=== PATIENT | female | born 1970 | race American Indian/Alaskan Native ===

== ENCOUNTER 2016-12-08 21:55 | Emergency (ER) | payer OTHER ==
[2016-12-08 23:06] LABS: Basophils % (Auto) 0.8 % (0.0-1.8); Eosinophils % (Auto) 1.3 % (0.0-4.3); Hematocrit 39.1 % (30.3-42.9); Hemoglobin 13.1 gm/dl (10.1-14.3); Mean Corpuscular HGB Conc 34 % (30-34); Mean Corpuscular Hemoglobin 30 pg (28-32); Mean Corpuscular Volume 90 fl (79-97); Platelet Count 387 K/mm3 (140-440); Red Blood Count 4.33 M/mm3 (3.65-5.03); Red Cell Distribution Width 12.3 % (13.2-15.2); White Blood Count 9.1 K/mm3 (4.5-11.0)
[2016-12-09 01:18] LABS: Anion Gap 20 mmol/L; BUN/Creatinine Ratio 18.57; Blood Urea Nitrogen 13 mg/dL (7-17); Calcium 9.3 mg/dL (8.4-10.2); Carbon Dioxide 22 mmol/L (22-30); Chloride 95.7 mmol/L (98-107); Glucose 116 mg/dL (65-100); Potassium 3.7 mmol/L (3.6-5.0); Sodium 134 mmol/L (137-145)
--- NOTE | 2016-12-09 06:30 | Emergency Department Report ---
HPI - General Chief Complaint: Chest Pain Time Seen by Provider: 12/09/16 06:09 - HPI HPI: This is a 46-year-old Afro[place] female presents to the emergency department from home with complaint of pain that started in the lower mid sternum and has gone down into the upper abdomen and radiates around the rib cage hurts her back. It began yesterday and has currently resolved without any intervention. She did have 2 episodes of vomiting along with her nausea and the says that there is been increased burping. She has a history of GERD but otherwise denies any other past medical history and she does not take any medications. Her primary care doctor is Dr. Hernandez. No recent travel or sick contacts at home. She specifically denies any history of NV, CVA, PE/DVT. She denies any shortness of breath, fever, dysuria, diaphoresis or any problems with bowel or bladder. She did not take anything for symptoms prior to presentation. ED Past Medical Hx - Past Medical History Previous Medical History?: No - Surgical History Past Surgical History?: No - Social History Smoking Status: Never Smoker Substance Use Type: None - Medications Home Medications: Home Medications Medication Instructions Recorded Confirmed Last Taken Type Docusate Sodium [Colace] 100 mg PO BID PRN #20 capsule 12/09/16 Unknown Rx Magnesium Citrate [Citrate of 300 ml PO NOW #1 bottle 12/09/16 Unknown Rx Magnesia] Nortriptyline [Pamelor] 50 mg PO QDAY 12/09/16 12/09/16 12/08/16 History Omeprazole 40 mg PO DAILY 12/09/16 12/09/16 12/08/16 History Sucralfate 1 gm PO BID 12/09/16 12/09/16 12/08/16 History ED Review of Systems ROS: Stated complaint: CHEST PAIN Other details as noted in HPI Comment: All other systems reviewed and negative Constitutional: denies: chills, fever Eyes: denies: eye pain, eye discharge, vision change ENT: denies: ear pain, throat pain Respiratory: denies: cough, shortness of breath, wheezing Cardiovascular: denies: palpitations, edema Gastrointestinal: abdominal pain, nausea, vomiting Genitourinary: denies: urgency, dysuria, discharge Musculoskeletal: denies: back pain, joint swelling, arthralgia Skin: denies: rash, lesions Neurological: denies: headache, weakness, paresthesias Physical Exam - Physical Exam Vital Signs: Vital Signs 12/08/16 12/09/16 22:03 05:09 Temperature 98.2 F 98.2 F Pulse Rate 85 79 Respiratory 16 18 Rate Blood Pressure 145/70 135/91 O2 Sat by Pulse 98 100 Oximetry Physical Exam: GENERAL: The patient is well-developed well-nourished. HEENT: Normocephalic. Atraumatic. Extraocular motions are intact. Patient has moist mucous membranes. Pupils equal reactive to light bilaterally. NECK: Supple. Trachea is midline. CHEST/LUNGS: Clear to auscultation. There is no respiratory distress noted. HEART/CARDIOVASCULAR: Regular. There is no tachycardia. There is no gallop rub or murmur. ABDOMEN: Abdomen is soft, nontender. Patient has normal bowel sounds. There is no abdominal distention. No guarding or rebound tenderness. SKIN: There is no rash. There is no edema. There is no diaphoresis. NEURO: The patient is awake, alert, and oriented. The patient is cooperative. The patient has no focal neurologic deficits. The patient has normal speech. MUSCULOSKELETAL: There is no tenderness or deformity. There is no limitation range of motion. There is no evidence of acute injury. ED Course Vital Signs 12/08/16 12/09/16 22:03 05:09 Temperature 98.2 F 98.2 F Pulse Rate 85 79 Respiratory 16 18 Rate Blood Pressure 145/70 135/91 O2 Sat by Pulse 98 100 Oximetry ED Medical Decision Making - Lab Data Result diagrams: 12/08/16 22:44 12/08/16 22:44 - Radiology Data Radiology results: image reviewed interpreted by me: Chest x-ray did not show any acute process. Heart is normal shape and size. No effusions. No pneumothorax. No signs of pneumonia seen. X-ray of the abdomen does not show any bowel obstruction or any acute process. There is a large amount of stool in the right side of the abdomen. - Medical Decision Making 46 year old female presents to the emergency department with some epigastric or upper abdominal pain that began yesterday but resolved without any intervention. The patient's labs been unremarkable including no leukocytosis, electrolyte abnormalities, renal insufficiency, glucose abnormalities and the patient has normal belly labs including LFT, lipase and bilirubin. Abdominal x- ray shows a large amount of stool but otherwise no signs of obstruction. There was some concern to triage the patient was here more for a chest pain. She had an EKG that does not show any ST elevation NV or ischemia or dysrhythmia. Chest x-ray does not show any acute process. Patient has had negative troponins 2. Patient is currently asymptomatic and has vital signs are stable throughout her ED course. The reason the patient appears safe for discharge home at this time. She has good follow-up with a primary care doctor but understands to return to the ER with any worsening of her symptoms or any acute distress. - Differential Diagnosis colitis, gastritis, cholelithiasis, GERD, pancreatitis Critical Care Time: No Critical care attestation.: If time is entered above; I have spent that time in minutes in the direct care of this critically ill patient, excluding procedure time. ED Disposition Clinical Impression: Increased stool volume Abdominal pain Qualifiers: Abdominal location: upper abdomen, unspecified Qualified Code(s): R10.10 - Upper abdominal pain, unspecified Nausea & vomiting Qualifiers: Vomiting type: unspecified Vomiting Intractability: non-intractable Qualified Code(s): R11.2 - Nausea with vomiting, unspecified Disposition: DISCHARGED TO HOME OR SELFCARE Is pt being admited?: No Does the pt Need Aspirin: No Condition: Good Instructions: Abdominal Pain (ED) Additional Instructions: Please follow-up with your primary care doctor in the next few days. Return to the emergency department with any worsening of your symptoms or any acute distress. Prescriptions: Docusate Sodium [Colace] 100 mg PO BID PRN #20 capsule PRN Reason: Constipation Magnesium Citrate [Citrate of Magnesia] 300 ml PO NOW #1 bottle Referrals: PRIMARY CAREMD [Primary Care Provider] - 3-5 Days Time of Disposition: 07:39
[2016-12-09 06:38] VITALS: BP 131/79
[2016-12-09] MEDS ORDERED: NACL ONE (07:09)
--- NOTE | 2016-12-09 07:28 | XRay Report ---
ABDOMINAL SERIES: History: Pain. Supine and upright views of the abdomen and frontal view of the chest are submitted. There is gas mixed with stool throughout the colon. There are no dilated loops of bowel or air-fluid levels. There is no free intraperitoneal gas. The lungs are clear. IMPRESSION: Fecal retention.
[2016-12-09 08:44] LABS: Alanine Aminotransferase 30 units/L (7-56); Albumin 4.1 g/dL (3.9-5); Albumin/Globulin Ratio 1.2 %; Alkaline Phosphatase 62 units/L (35-129); Bilirubin,Total 0.3 mg/dL (0.1-1.2); Lipase 19 units/L (13-60); Total Protein 7.6 g/dL (6.3-8.2)
[2016-12-09 08:58] LABS: Bilirubin,Direct < 0.2 mg/dL (0-0.2)
== END 2016-12-09 07:47 | disposition home or self-care (01) ==
LOC: ED 21:55
DX: R11.2 Nausea with vomiting, unspecified (principal); R19.5 Other fecal abnormalities; R10.10 Upper abdominal pain, unspecified; R07.89 Other chest pain
CPT/HCPCS: 36415; 74022; 80048; 80074; 83690; 84484; 84703; 85025; 93005; 93010

== ENCOUNTER 2017-08-24 04:38 | Emergency (ER) | payer OTHER ==
[2017-08-24 04:50] VITALS: BP 122/75
[2017-08-24 05:21] LABS: Amylase 74 units/L (27-131); Anion Gap 21 mmol/L; BUN/Creatinine Ratio 23; Blood Urea Nitrogen 21 mg/dL (7-17); Calcium 9.8 mg/dL (8.4-10.2); Carbon Dioxide 24 mmol/L (22-30); Chloride 96.8 mmol/L (98-107); Glucose 168 mg/dL (65-100); Lipase 18 units/L (13-60); Potassium 3.7 mmol/L (3.6-5.0); Sodium 138 mmol/L (137-145)
[2017-08-24 05:26] LABS: Alanine Aminotransferase 24 units/L (7-56); Albumin 4.2 g/dL (3.9-5); Albumin/Globulin Ratio 1.1 %; Alkaline Phosphatase 85 units/L (35-129); Basophils % (Auto) 0.5 % (0.0-1.8); Eosinophils % (Auto) 0.1 % (0.0-4.3); Hematocrit 38.7 % (30.3-42.9); Hemoglobin 13.6 gm/dl (10.1-14.3); Mean Corpuscular HGB Conc 35 % (30-34); Mean Corpuscular Hemoglobin 31 pg (28-32); Mean Corpuscular Volume 89 fl (79-97); Platelet Count 352 K/mm3 (140-440); Red Blood Count 4.36 M/mm3 (3.65-5.03); Red Cell Distribution Width 12.4 % (13.2-15.2); Total Protein 7.9 g/dL (6.3-8.2); White Blood Count 9.6 K/mm3 (4.5-11.0)
[2017-08-24 05:38] LABS: Creatine Kinase 117 units/L (30-135)
[2017-08-24 05:42] LABS: Bilirubin,Direct < 0.2 mg/dL (0-0.2)
== END 2017-08-24 08:10 | disposition left against medical advice (07) ==
LOC: ED 04:38
DX: R10.9 Unspecified abdominal pain (principal); Z53.21 Procedure and treatment not carried out due to patient leaving prior to being seen by health care provider
CPT/HCPCS: 36415; 80048; 80074; 82150; 82550; 83690; 84484; 85025; 93005; 93010

== ENCOUNTER 2017-09-21 12:00 | Inpatient (IN) | payer OTHER ==
--- NOTE | 2017-09-21 12:16 | Emergency Department Report ---
Chief Complaint: Abdominal Pain Stated Complaint: ABDOMINAL AND BACK PAIN Time Seen by Provider: 09/21/17 12:15 - HPI History of Present Illness: PT here with her family Family complaining that she's been having abdominal pain that is achy and and radiates to her back. She says she's been having this pain for 3 months. On and off. Reports that her primary care gave her medication injection for abdomen and back pain. She said he should x-ray last month. She has a history of gastroenteritis. Denies any urinary burning frequency or urgency. Denies any fever or chills. Patient has a history of migraine. She denies any history of hypertension although as documented. - ROS Review of Systems: All systems are negative unless stated in HPI above - Exam Vital Signs: Vital Signs 09/21/17 12:05 Temperature 98.1 F Pulse Rate 98 H Respiratory 18 Rate Blood Pressure 118/84 O2 Sat by Pulse 97 Oximetry Physical Exam: Gen.: This is a 47-year-old female that appears to be in physical distress from abdominal pain but she is nontoxic in appearance. Abdomen: Tender to palpate. Normal bowel sounds. Soft. MSE screening note: Focused history and physical exam performed. Due to findings the following was ordered: ED Medical Decision Making - Medical Decision Making MDM: Patient screened by provider in triage area. Appropriate protocol initiated and patient to be seen in main ED by ED Disposition for MSE Condition: Stable Instructions: Abdominal Pain (ED)
[2017-09-21 12:51] LABS: Bacteria,Urine 1+ /HPF (Negative); Bilirubin,Urine NEG (Negative); Blood,Urine NEG (Negative); Ketones,Urine NEG (Negative); Leukocyte Esterase,Urine NEG (Negative); Mucus,Urine 3+ /HPF; Nitrite,Urine NEG (Negative); Protein,Urine <15 mg/dL mg/dL (Negative); Urobilinogen,Urine < 2.0 mg/dL (<2.0)
[2017-09-21 12:58] LABS: Basophils % (Auto) 0.8 % (0.0-1.8); Eosinophils % (Auto) 0.3 % (0.0-4.3); Hematocrit 39.4 % (30.3-42.9); Hemoglobin 13.6 gm/dl (10.1-14.3); Mean Corpuscular HGB Conc 35 % (30-34); Mean Corpuscular Hemoglobin 31 pg (28-32); Mean Corpuscular Volume 90 fl (79-97); Platelet Count 403 K/mm3 (140-440); Red Blood Count 4.39 M/mm3 (3.65-5.03); Red Cell Distribution Width 12.7 % (13.2-15.2); White Blood Count 12.5 K/mm3 (4.5-11.0)
[2017-09-21 13:17] LABS: Alanine Aminotransferase 20 units/L (7-56); Albumin/Globulin Ratio 1.1 %; Alkaline Phosphatase 85 units/L (35-129); Anion Gap 17 mmol/L; BUN/Creatinine Ratio 13; Blood Urea Nitrogen 8 mg/dL (7-17); Carbon Dioxide 26 mmol/L (22-30); Chloride 98.4 mmol/L (98-107); Glucose 113 mg/dL (65-100); Lipase 14 units/L (13-60); Potassium 3.6 mmol/L (3.6-5.0); Sodium 138 mmol/L (137-145); Total Protein 7.6 g/dL (6.3-8.2)
[2017-09-21] MEDS ORDERED: MORPHINE IV ONE (16:31)
[2017-09-21] MEDS ORDERED: TORADOL IV ONE (16:31)
[2017-09-21] MEDS ORDERED: ZOFRAN IV ONE (16:31)
--- NOTE | 2017-09-21 16:37 | Emergency Department Report ---
ED Abdominal Pain HPI - General Chief Complaint: Abdominal Pain Stated Complaint: ABDOMINAL AND BACK PAIN Time Seen by Provider: 09/21/17 16:10 Source: patient Mode of arrival: Ambulatory Limitations: No Limitations - History of Present Illness Initial Comments: 47yo female with a 3 month h/o abdominal pain in ruq, mid quadrant with n/v and vomiting. last month a double contrast CT of abdomen and pelvis was negative for any acute findings. He pain usually goes away for tow to threee weeks and then returns, she began having pain again 3 days ago with 2 episode of vomiting and no fever. She rates her pain 10/10. She she has experienced no n/v since yesterday. MD Complaint: abdominal pain -: Gradual, days(s) (3) Location: RUQ, epigastric Radiation: none Migration to: no migration Severity scale (0 -10): 10 Quality: cramping Consistency: constant Improves With: nothing Worsens With: nothing Associated Symptoms: nausea, vomiting. denies: diarrhea, fever, chills, constipation - Related Data Home Medications Medication Instructions Recorded Confirmed Last Taken Omeprazole 40 mg PO DAILY 12/09/16 09/21/17 12/08/16 Sucralfate 1 gm PO BID 12/09/16 09/21/17 12/08/16 Aspirin/Acetaminophen/Caffeine 4 each PO BID PRN 09/21/17 09/21/17 Unknown [Excedrin Extra Strength Caplet] AtorvaSTATin [Lipitor] 10 mg PO QHS 09/21/17 09/21/17 Unknown HYDROcodone/ACETAMINOPHEN 1 each PO Q8H PRN 09/21/17 09/21/17 Unknown [Hydrocodon-Acetaminophen 5-325] Ondansetron [Zofran ODT TAB] 8 mg PO TID PRN 09/21/17 09/21/17 Unknown Simethicone [Gas-X] 125 mg PO QDAY PRN 09/21/17 09/21/17 Unknown Tums 3 tab PO BID PRN 09/21/17 09/21/17 Unknown oxyCODONE /ACETAMINOPHEN [Percocet 1 tab PO Q6HR PRN 09/21/17 09/21/17 Unknown 5/325] traZODone [Desyrel] 100 mg PO QHS 09/21/17 09/21/17 Unknown Allergies Allergy/AdvReac Type Severity Reaction Status Date / Time No Known Allergies Allergy Verified 12/08/16 22:03 ED Review of Systems ROS: Stated complaint: ABDOMINAL AND BACK PAIN Other details as noted in HPI Constitutional: weakness. denies: chills, fever Eyes: denies: eye pain, eye discharge, vision change ENT: denies: ear pain, throat pain Respiratory: denies: cough, shortness of breath, wheezing Cardiovascular: denies: chest pain, palpitations Endocrine: no symptoms reported Gastrointestinal: nausea. denies: abdominal pain, diarrhea Genitourinary: denies: urgency, dysuria, discharge Musculoskeletal: denies: back pain, joint swelling, arthralgia Skin: denies: rash, lesions Neurological: weakness. denies: headache, paresthesias Psychiatric: denies: anxiety, depression Hematological/Lymphatic: denies: easy bleeding, easy bruising ED Past Medical Hx - Past Medical History Previous Medical History?: Yes Hx Hypertension: Yes Hx Headaches / Migraines: Yes Additional medical history: Gerd, Gastroenteritis - Surgical History Past Surgical History?: No - Social History Smoking Status: Never Smoker Substance Use Type: Prescribed - Medications Home Medications: Home Medications Medication Instructions Recorded Confirmed Last Taken Type Omeprazole 40 mg PO DAILY 12/09/16 09/21/17 12/08/16 History Sucralfate 1 gm PO BID 12/09/16 09/21/17 12/08/16 History Aspirin/Acetaminophen/Caffeine 4 each PO BID PRN 09/21/17 09/21/17 Unknown History [Excedrin Extra Strength Caplet] AtorvaSTATin [Lipitor] 10 mg PO QHS 09/21/17 09/21/17 Unknown History HYDROcodone/ACETAMINOPHEN 1 each PO Q8H PRN 09/21/17 09/21/17 Unknown History [Hydrocodon-Acetaminophen 5-325] Ondansetron [Zofran ODT TAB] 8 mg PO TID PRN 09/21/17 09/21/17 Unknown History Simethicone [Gas-X] 125 mg PO QDAY PRN 09/21/17 09/21/17 Unknown History Tums 3 tab PO BID PRN 09/21/17 09/21/17 Unknown History oxyCODONE /ACETAMINOPHEN [Percocet 1 tab PO Q6HR PRN 09/21/17 09/21/17 Unknown History 5/325] traZODone [Desyrel] 100 mg PO QHS 09/21/17 09/21/17 Unknown History ED Physical Exam - General Limitations: No Limitations General appearance: alert, in distress - Head Head exam: Present: atraumatic, normocephalic - Eye Eye exam: Present: normal appearance, EOMI - ENT ENT exam: Present: mucous membranes moist - Neck Neck exam: Present: normal inspection - Respiratory Respiratory exam: Present: normal lung sounds bilaterally. Absent: respiratory distress - Cardiovascular Cardiovascular Exam: Present: regular rate, normal rhythm. Absent: systolic murmur, diastolic murmur, rubs, gallop - GI/Abdominal GI/Abdominal exam: Present: soft, tenderness (ruq,luq,epigstrium), guarding, normal bowel sounds. Absent: rebound - Rectal Rectal exam: Present: deferred - Extremities Exam Extremities exam: Present: normal inspection, full ROM - Back Exam Back exam: Present: normal inspection, full ROM - Neurological Exam Neurological exam: Present: alert, oriented X3, CN II-XII intact - Psychiatric Psychiatric exam: Present: normal affect, normal mood - Skin Skin exam: Present: warm, dry, intact, normal color. Absent: rash ED Course Vital Signs 09/21/17 09/21/17 09/21/17 12:05 15:41 15:45 Temperature 98.1 F 98.4 F Pulse Rate 98 H 98 H Respiratory 18 16 18 Rate Blood Pressure 118/84 Blood Pressure 125/79 [Left] O2 Sat by Pulse 97 99 Oximetry 09/21/17 09/21/17 09/21/17 16:49 16:50 16:52 Temperature Pulse Rate 79 Respiratory 16 16 16 Rate Blood Pressure Blood Pressure 143/69 [Left] O2 Sat by Pulse 100 Oximetry 09/21/17 09/21/17 09/21/17 17:19 17:20 18:00 Temperature 98.3 F Pulse Rate 81 Respiratory 18 18 16 Rate Blood Pressure Blood Pressure 139/74 [Left] O2 Sat by Pulse 100 Oximetry 09/21/17 09/21/17 19:26 21:31 Temperature 98.5 F 98.1 F Pulse Rate 71 71 Respiratory 16 16 Rate Blood Pressure Blood Pressure 113/71 121/78 [Left] O2 Sat by Pulse 99 98 Oximetry - Reevaluation(s) Reevaluation #1: 11/20/17 18:[address] CEVALLOS PAGED AND RETURNED CALL 18:06 HOSPITALIST PAGED FOR PT ADMISSION ED Medical Decision Making - Lab Data Result diagrams: 09/21/17 12:00 09/21/17 12:40 - Radiology Data Radiology results: report reviewed (US GALLBLADDER: CHOLELITHIASIS, CHOLECYSTITIS, PERICHOLECYSTIC FLUID, COMMON BILE DUCT 6MM. POSITIVE SONOGRAPHIC Chavez'S SIGN) - Medical Decision Making DR CEVALLOS -SURGEON --CASE REVIEWED AND HE IS HAPPY TO CONSULT. HE WANTS HER TO RECEIVE LEVAQUIN AND IV FLUIDS AND THE HOSPITALIST TO ADMIT. Critical care attestation.: If time is entered above; I have spent that time in minutes in the direct care of this critically ill patient, excluding procedure time. ED Disposition Clinical Impression: Cholecystitis with cholelithiasis Qualifiers: Cholelithiasis location: gallbladder and bile duct Cholecystitis acuity: acute Biliary obstruction: with biliary obstruction Qualified Code(s): K80.63 - Calculus of gallbladder and bile duct with acute cholecystitis with obstruction Abdominal pain Qualifiers: Abdominal location: upper abdomen, unspecified Qualified Code(s): R10.10 - Upper abdominal pain, unspecified Disposition: DC-09 OP ADMIT IP TO THIS HOSP Is pt being admited?: Yes Does the pt Need Aspirin: No Condition: Stable Time of Disposition: 18:47 (case reviewed with Dr Marroquin and he will admit to his service)
--- NOTE | 2017-09-21 17:41 | Ultrasound Report ---
FINAL REPORT PROCEDURE: US ABDOMEN LIMITED TECHNIQUE: Real-time sonography was performed of the right upper quadrant of the abdomen with image documentation. CPT 06158 HISTORY: rug,mid quadrant pain COMPARISON: No prior studies are available for comparison. FINDINGS: Visualized portions of the pancreas and liver display no abnormalities. Proximal abdominal aorta is normal in size. Right kidney measures 9.9 cm in length and displays no abnormalities Cholelithiasis is seen with gallbladder wall being mildly thickened at 3 millimeters. Patient exhibited positive sonographic Garcia's sign. Two gallstones are seen, 1 in the neck in the other in the fundus. There may be a small amount of pericholecystic fluid. Common bile duct is dilated to 6 millimeters. Further evaluation with MRCP may be useful. IMPRESSION: Cholelithiasis and likely changes of cholecystitis are seen. Mild common bile duct dilation is seen. Further evaluation with MRCP may be useful to assess for any ductal stones.
[2017-09-21] MEDS ORDERED: LEVAQUIN 750MG/150ML 750 MG/150 ML BAG IV ONE (18:06)
[2017-09-21] MEDS ORDERED: NACL 0.9% 1000 ML 1,000 ML IV ONE (18:06)
[2017-09-21] MEDS ORDERED: DULCOLAX PR PRN (21:03)
[2017-09-21] MEDS ORDERED: TYLENOL PO PRN (21:03)
[2017-09-21] MEDS ORDERED: MORPHINE IV PRN (21:03)
--- NOTE | 2017-09-21 21:03 | History and Physical Report ---
History of Present Illness Date of examination: 09/21/17 Date of admission: 09/21/17 Chief complaint: CC RUQ pain for 2 days History of present illness: - History of Present Illness Initial Comments: 47yo female with a 3 month h/o abdominal pain in ruq with n/v and vomiting. last month a double contrast CT of abdomen and pelvis was negative for any acute findings. Her pain usually goes away for two to threee weeks and then returns, she began having pain again 3 days ago with 2 episode of vomiting and no fever. She rates her pain 10/10. She she has experienced no n/v since yesterday. Past Medical History Previous Medical History?: Yes Hx Hypertension: Yes Hx Headaches / Migraines: Yes Additional medical history: Gerd, Gastroenteritis Surgical History Past Surgical History?: No Social History Smoking Status: Never Smoker Substance Use Type: Prescribed Medications Home Medications: Home Medications Medication Instructions Recorded Confirmed Last Taken Type Omeprazole 40 mg PO DAILY 12/09/16 09/21/17 12/08/16 History Sucralfate 1 gm PO BID 12/09/16 09/21/17 12/08/16 History Aspirin/Acetaminophen/Caffeine 4 each PO BID PRN 09/21/17 09/21/17 Unknown History [Excedrin Extra Strength Caplet] AtorvaSTATin [Lipitor] 10 mg PO QHS 09/21/17 09/21/17 Unknown History HYDROcodone/ACETAMINOPHEN 1 each PO Q8H PRN 09/21/17 09/21/17 Unknown History [Hydrocodon-Acetaminophen 5-325] Ondansetron [Zofran ODT TAB] 8 mg PO TID PRN 09/21/17 09/21/17 Unknown History Simethicone [Gas-X] 125 mg PO QDAY PRN 09/21/17 09/21/17 Unknown History Tums 3 tab PO BID PRN 09/21/17 09/21/17 Unknown History oxyCODONE /ACETAMINOPHEN [Percocet 1 tab PO Q6HR PRN 09/21/17 09/21/17 Unknown History 5/325] traZODone [Desyrel] 100 mg PO QHS 09/21/17 09/21/17 Unknown History Allergies Allergy/AdvReac Type Severity Reaction Status Date / Time No Known Allergies Allergy Verified 12/08/16 22:03 Review of Systems ROS: Stated complaint: ABDOMINAL AND BACK PAIN Other details as noted in HPI Constitutional: weakness. denies: chills, fever Eyes: denies: eye pain, eye discharge, vision change ENT: denies: ear pain, throat pain Respiratory: denies: cough, shortness of breath, wheezing Cardiovascular: denies: chest pain, palpitations Endocrine: no symptoms reported Gastrointestinal: nausea. denies: abdominal pain, diarrhea Genitourinary: denies: urgency, dysuria, discharge Musculoskeletal: denies: back pain, joint swelling, arthralgia Skin: denies: rash, lesions Neurological: weakness. denies: headache, paresthesias Psychiatric: denies: anxiety, depression Hematological/Lymphatic: denies: easy bleeding, easy bruising Medications and Allergies Allergies Allergy/AdvReac Type Severity Reaction Status Date / Time No Known Allergies Allergy Verified 12/08/16 22:03 Home Medications Medication Instructions Recorded Confirmed Last Taken Type Omeprazole 40 mg PO DAILY 12/09/16 09/21/17 12/08/16 History Sucralfate 1 gm PO BID 12/09/16 09/21/17 12/08/16 History Aspirin/Acetaminophen/Caffeine 4 each PO BID PRN 09/21/17 09/21/17 Unknown History [Excedrin Extra Strength Caplet] AtorvaSTATin [Lipitor] 10 mg PO QHS 09/21/17 09/21/17 Unknown History HYDROcodone/ACETAMINOPHEN 1 each PO Q8H PRN 09/21/17 09/21/17 Unknown History [Hydrocodon-Acetaminophen 5-325] Ondansetron [Zofran ODT TAB] 8 mg PO TID PRN 09/21/17 09/21/17 Unknown History Simethicone [Gas-X] 125 mg PO QDAY PRN 09/21/17 09/21/17 Unknown History Tums 3 tab PO BID PRN 09/21/17 09/21/17 Unknown History oxyCODONE /ACETAMINOPHEN [Percocet 1 tab PO Q6HR PRN 09/21/17 09/21/17 Unknown History 5/325] traZODone [Desyrel] 100 mg PO QHS 09/21/17 09/21/17 Unknown History Exam - Constitutional Vitals: Temp Pulse Resp BP Pulse Ox 98.5 F 71 16 113/71 99 09/21/17 19:26 09/21/17 19:26 09/21/17 19:26 09/21/17 19:26 09/21/17 19:26 General appearance: Present: no acute distress, mild distress, well-nourished - EENT Eyes: Present: PERRL ENT: hearing intact, clear oral mucosa - Neck Neck: Present: supple, normal ROM - Respiratory Respiratory effort: normal Respiratory: bilateral: CTA - Cardiovascular Heart rate: 76 Rhythm: regular Heart Sounds: Present: S1 & S2. Absent: rub, click - Extremities Extremities: no ischemia, pulses intact, pulses symmetrical, No edema Peripheral Pulses: within normal limits - Abdominal General gastrointestinal: Present: soft, non-tender, non-distended, normal bowel sounds Localized gastrointestinal: tender: RUQ, guarding: RUQ Female genitourinary: Present: normal - Rectal Rectal Exam: deferred - Integumentary Integumentary: Present: clear, warm, dry - Musculoskeletal Musculoskeletal: gait normal, strength equal bilaterally - Psychiatric Psychiatric: appropriate mood/affect, intact judgment & insight - Neurologic Neurologic: CNII-XII intact, moves all extremities - Allied Health Allied health notes reviewed: nursing, case management Results - Labs CBC & Chem 7: 09/21/17 12:00 09/21/17 12:40 Labs: Laboratory Last Values WBC 12.5 K/mm3 (4.5-11.0) H 09/21/17 12:00 RBC 4.39 M/mm3 (3.65-5.03) 09/21/17 12:00 Hgb 13.6 gm/dl (10.1-14.3) 09/21/17 12:00 Hct 39.4 % (30.3-42.9) 09/21/17 12:00 MCV 90 fl (79-97) 09/21/17 12:00 MCH 31 pg (28-32) 09/21/17 12:00 MCHC 35 % (30-34) H 09/21/17 12:00 RDW 12.7 % (13.2-15.2) L 09/21/17 12:00 Plt Count 403 K/mm3 (140-440) 09/21/17 12:00 Lymph % (Auto) 25.5 % (13.4-35.0) 09/21/17 12:00 [place] % (Auto) 6.2 % (0.0-7.3) 09/21/17 12:00 Eos % (Auto) 0.3 % (0.0-4.3) 09/21/17 12:00 Baso % (Auto) 0.8 % (0.0-1.8) 09/21/17 12:00 Lymph # 3.2 K/mm3 (1.2-5.4) 09/21/17 12:00 Callaway # 0.8 K/mm3 (0.0-0.8) 09/21/17 12:00 Eos # 0.0 K/mm3 (0.0-0.4) 09/21/17 12:00 Baso # 0.1 K/mm3 (0.0-0.1) 09/21/17 12:00 Seg Neutrophils % 67.2 % (40.0-70.0) 09/21/17 12:00 Seg Neutrophils # 8.4 K/mm3 (1.8-7.7) H 09/21/17 12:00 D-Dimer 511.72 ng/mlDDU (0-234) H 09/21/17 17:23 Sodium 138 mmol/L (137-145) 09/21/17 12:40 Potassium 3.6 mmol/L (3.6-5.0) 09/21/17 12:40 Chloride 98.4 mmol/L (98-107) 09/21/17 12:40 Carbon Dioxide 26 mmol/L (22-30) 09/21/17 12:40 Anion Gap 17 mmol/L 09/21/17 12:40 BUN 8 mg/dL (7-17) 09/21/17 12:40 Creatinine 0.6 mg/dL (0.7-1.2) L 09/21/17 12:40 Estimated GFR > 60 ml/min 09/21/17 12:40 BUN/Creatinine Ratio 13 % 09/21/17 12:40 Glucose 113 mg/dL (65-100) H 09/21/17 12:40 Calcium 9.0 mg/dL (8.4-10.2) 09/21/17 12:40 Total Bilirubin 0.50 mg/dL (0.1-1.2) 09/21/17 12:40 AST 20 units/L (5-40) 09/21/17 12:40 ALT 20 units/L (7-56) 09/21/17 12:40 Alkaline Phosphatase 85 units/L (35-129) 09/21/17 12:40 Total Protein 7.6 g/dL (6.3-8.2) 09/21/17 12:40 Albumin 4.0 g/dL (3.9-5) 09/21/17 12:40 Albumin/Globulin Ratio 1.1 % 09/21/17 12:40 Lipase 14 units/L (13-60) 09/21/17 12:40 HCG, Qual Negative (Negative) 09/21/17 18:11 Urine Color Yellow (Yellow) 09/21/17 12:34 Urine Turbidity Clear (Clear) 09/21/17 12:34 Urine pH 5.0 (5.0-7.0) 09/21/17 12:34 Ur Specific [place] 1.018 (1.003-1.030) 09/21/17 12:34 Urine Protein <15 mg/dl mg/dL (Negative) 09/21/17 12:34 Urine Glucose (UA) Neg mg/dL (Negative) 09/21/17 12:34 Urine Ketones Neg mg/dL (Negative) 09/21/17 12:34 Urine Blood Neg (Negative) 09/21/17 12:34 Urine Nitrite Neg (Negative) 09/21/17 12:34 Urine Bilirubin Neg (Negative) 09/21/17 12:34 Urine Urobilinogen < 2.0 mg/dL (<2.0) 09/21/17 12:34 Ur Leukocyte Esterase Neg (Negative) 09/21/17 12:34 Urine WBC (Auto) 1.0 /HPF (0.0-6.0) 09/21/17 12:34 Urine RBC (Auto) 2.0 /HPF (0.0-6.0) 09/21/17 12:34 U Epithel Cells (Auto) 2.0 /HPF (0-13.0) 09/21/17 12:34 Urine Bacteria (Auto) 1+ /HPF (Negative) 09/21/17 12:34 Hyaline Casts 1 /LPF 09/21/17 12:34 Urine Mucus 3+ /HPF 09/21/17 12:34 - Imaging and Cardiology US - abdomen: report reviewed (Cholelithiasis and possible cholecystitis CBD dilatation) Assessment and Plan Advance Directives: Yes (Full code) VTE prophylaxis?: Chemical Plan of care discussed with patient/family: Yes - Patient Problems (1) Cholecystitis with cholelithiasis Current Visit: Yes Status: Acute Qualifiers: Cholelithiasis location: gallbladder and bile duct Cholecystitis acuity: acute Biliary obstruction: with biliary obstruction Qualified Code(s): K80.63 - Calculus of gallbladder and bile duct with acute cholecystitis with obstruction Plan to address problem: pain control Surgery conult requested Gi consult requested Will defer to GI/Surgery reg HIDA scan (2) GERD (gastroesophageal reflux disease) Current Visit: Yes Status: Chronic Qualifiers: Esophagitis presence: with esophagitis Qualified Code(s): K21.0 - Gastro- esophageal reflux disease with esophagitis Plan to address problem: IV protonix for now (3) HLD (hyperlipidemia) Current Visit: Yes Status: Acute Plan to address problem: Hold statins (4) Depression Current Visit: Yes Status: Chronic Qualifiers: Depression Type: unspecified Qualified Code(s): F32.9 - Major depressive disorder, single episode, unspecified Plan to address problem: Hold Trazodone till postop (5) DVT prophylaxis Current Visit: Yes Status: Acute Plan to address problem: On Lovenox
[2017-09-21] MEDS ORDERED: LOVENOX SUB-Q SCH (22:00)
[2017-09-21] MEDS ORDERED: D5NS 1,000 ML IV SCH (22:00)
[2017-09-21] MEDS: PEPCID IV SCH (22:15)
[2017-09-22] MEDS: PEPCID IV SCH ×2 (10:00→21:40)
[2017-09-22] MEDS ORDERED: DILAUDID IV PRN (11:59)
--- NOTE | 2017-09-22 12:01 | Progress Note ---
Assessment and Plan Full consult dictated. 47 y/o female acute cholecystitis. questionable dilated CBD on US. MRCP recommended Abd - RUQ tenderness with + Garcia's sign Keep NPO IV antibiotics MRCP now for lap GB in am if MRCP neg for CBD stones Selected Entries 09/21/17 09/22/17 21:31 10:11 Temperature 98.1 F Pulse Rate 71 Respiratory 16 Rate Blood Pressure 121/78 [Left] Laboratory Tests 09/21/17 09/21/17 12:00 12:40 WBC 12.5 H Hgb 13.6 Hct 39.4 Sodium 138 Potassium 3.6 Chloride 98.4 Carbon Dioxide 26 Anion Gap 17 BUN 8 Creatinine 0.6 L Total Bilirubin 0.50 AST 20 ALT 20 Alkaline Phosphatase 85 Lipase 14 Objective Vital Signs - 12hr 09/22/17 10:11 Respiratory 16 Rate - Labs 09/21/17 12:00 09/21/17 12:40 Diabetes panel 09/21/17 Range/Units 12:40 Sodium 138 (137-145) mmol/L Potassium 3.6 (3.6-5.0) mmol/L Chloride 98.4 (98-107) mmol/L Carbon Dioxide 26 (22-30) mmol/L BUN 8 (7-17) mg/dL Creatinine 0.6 L (0.7-1.2) mg/dL Glucose 113 H (65-100) mg/dL Calcium 9.0 (8.4-10.2) mg/dL AST 20 (5-40) units/L ALT 20 (7-56) units/L Alkaline Phosphatase 85 (35-129) units/L Total Protein 7.6 (6.3-8.2) g/dL Albumin 4.0 (3.9-5) g/dL Calcium panel 09/21/17 Range/Units 12:40 Calcium 9.0 (8.4-10.2) mg/dL Albumin 4.0 (3.9-5) g/dL Pituitary panel 09/21/17 Range/Units 12:40 Sodium 138 (137-145) mmol/L Potassium 3.6 (3.6-5.0) mmol/L Chloride 98.4 (98-107) mmol/L Carbon Dioxide 26 (22-30) mmol/L BUN 8 (7-17) mg/dL Creatinine 0.6 L (0.7-1.2) mg/dL Glucose 113 H (65-100) mg/dL Calcium 9.0 (8.4-10.2) mg/dL Adrenal panel 09/21/17 Range/Units 12:40 Sodium 138 (137-145) mmol/L Potassium 3.6 (3.6-5.0) mmol/L Chloride 98.4 (98-107) mmol/L Carbon Dioxide 26 (22-30) mmol/L BUN 8 (7-17) mg/dL Creatinine 0.6 L (0.7-1.2) mg/dL Glucose 113 H (65-100) mg/dL Calcium 9.0 (8.4-10.2) mg/dL Total Bilirubin 0.50 (0.1-1.2) mg/dL AST 20 (5-40) units/L ALT 20 (7-56) units/L Alkaline Phosphatase 85 (35-129) units/L Total Protein 7.6 (6.3-8.2) g/dL Albumin 4.0 (3.9-5) g/dL
--- NOTE | 2017-09-22 16:31 | Magnetic Resonance Report ---
MRI ABDOMEN WITH MRCP: 09/22/17 10:36:00 CLINICAL: Abdominal pain and a dilated CBD ultrasound. COMPARISON:09/21/17 ultrasound TECHNIQUE: Axial T1 in phase and opposed phase, coronal and axial T2 and axial T2 fat sat sequences plus thin and thick slab MRCP sequences on a 1.5 Christi magnet. FINDINGS: Normal liver size, contour and signal. No liver mass. The gallbladder is distended with several small calculi and a thickened wall. Gallbladder wall measures 5 mm maximum thickness. There is pericholecystic fluid. The largest gallstone measures 1 cm diameter. There appears to be a 6 mm calculus obstructing the cystic duct. The common bile duct is mildly dilated and measures 5 mm in the juan antonio hepatis. There is flow-void at the ampulla which likely represents an obstructing calculus at the ampulla. A tiny central flow-void in the CBD is probably a flow artifact. The pancreas is small and there are no signs of acute or chronic pancreatitis. The stomach, duodenum and spleen are normal. Normal adrenal glands and kidneys. Imaged portions of small bowel and colon are normal. Very mild perihepatic ascites. IMPRESSION: 1. Cholelithiasis and changes in the gallbladder consistent with acute cholecystitis with a 6 mm obstructing calculus at the cystic duct. 2. Suspect an obstructing calculus at the distal CBD. 3. No evidence of pancreatitis.
[2017-09-22] MEDS ORDERED: LEVAQUIN 750MG/150ML 750 MG/150 ML BAG IV SCH (18:00)
--- NOTE | 2017-09-22 18:22 | Consultation ---
REASON FOR CONSULTATION: Rule out acute cholecystitis. HISTORY OF PRESENT ILLNESS: The patient is a pleasant 47-year-old female who presented to the Emergency Room yesterday evening with a chief complaint of right upper quadrant abdominal pain radiating to her back, accompanied by nausea and vomiting. PAST MEDICAL HISTORY: Pertinent for migraines and GERD. PAST SURGICAL HISTORY: Negative. ALLERGIES: No known allergies. MEDICATIONS: Include Prilosec and trazodone. FAMILY HISTORY: Diabetes and CVA. SOCIAL HISTORY: Denies any smoking or drinking. REVIEW OF SYSTEMS: Noncontributory. PHYSICAL EXAMINATION: GENERAL: At this time reveals patient to be awake, alert, cooperative, in moderate discomfort, but no acute distress. VITAL SIGNS: Show her to be afebrile with a temperature of 98.1, blood pressure is 121/78, pulse is 71, respirations 16. HEENT: Pupils are equal and reactive to light and accommodation. Sclerae is nonicteric. ABDOMEN: Examination of the abdomen reveals to be moderately obese and soft. There is, however, localized right upper quadrant tenderness with positive Garcia sign. Bowel sounds are hypoactive. LABORATORY DATA: At present includes a CBC which shows a white count of 12.5, H and H is 13.6 and 3.49. Electrolytes were essentially within normal limits. BUN is 8 and creatinine is 0.6. Glucose is 113. LFTs are normal including a total bilirubin of 0.5, AST of 20, ALT of 20 and alkaline phosphatase of 85. Lipase is normal at 14. A gallbladder ultrasound has been done, which I have reviewed with the radiologist. Findings are consistent with a probable early cholecystitis. Also, there is mild common bile duct dilatation described approximately 6 mm. MRCP is recommended. ASSESSMENT AND PLAN: 1. At this time is that of a healthy 47-year-old female, rule out acute cholecystitis. 2. Questionable dilated common bile duct, though LFTs and total bilirubin are normal. RECOMMENDATIONS: At this time, keep the patient n.p.o. Start IV Levaquin. We will order an MRCP to assure no common bile duct stones. I will proceed with laparoscopic cholecystectomy in the morning pending MRCP findings to confirm that there are no common duct stones. If common duct stones are noted, then we will proceed with GI evaluation for possible ERCP. We will follow with you. Thank you very much for consultation. JOB# [id number] JASPREET/NTS
--- NOTE | 2017-09-22 22:53 | Progress Note ---
Assessment and Plan - Patient Problems (1) Cholecystitis with cholelithiasis Current Visit: Yes Status: Acute Qualifiers: Cholelithiasis location: gallbladder and bile duct Cholecystitis acuity: acute Biliary obstruction: with biliary obstruction Qualified Code(s): K80.63 - Calculus of gallbladder and bile duct with acute cholecystitis with obstruction Plan to address problem: pain control Surgery consult appreciated MRCP positive for CBD stone and cystic duct stone For Lap cholecystectomy tomorrow (2) GERD (gastroesophageal reflux disease) Current Visit: Yes Status: Chronic Qualifiers: Esophagitis presence: with esophagitis Qualified Code(s): K21.0 - Gastro- esophageal reflux disease with esophagitis Plan to address problem: IV protonix for now (3) HLD (hyperlipidemia) Current Visit: Yes Status: Acute Plan to address problem: Hold statins (4) Depression Current Visit: Yes Status: Chronic Qualifiers: Depression Type: unspecified Qualified Code(s): F32.9 - Major depressive disorder, single episode, unspecified Plan to address problem: Hold Trazodone till postop (5) DVT prophylaxis Current Visit: Yes Status: Acute Plan to address problem: On Lovenox Subjective Date of service: 09/22/17 Principal diagnosis: Cholelithiasis and Acute Cholecystitis Interval history: Symptomatically better Objective - Constitutional Vitals: Vital Signs - 12hr 09/22/17 09/22/17 09/22/17 12:15 12:16 12:30 Temperature 99.0 F 99.0 F Pulse Rate 77 78 75 Respiratory 20 20 Rate Blood Pressure 136/78 Blood Pressure 136/78 [Left] O2 Sat by Pulse 97 98 98 Oximetry 09/22/17 09/22/17 16:29 16:45 Temperature 99.3 F Pulse Rate 72 72 Respiratory 18 Rate Blood Pressure Blood Pressure 119/73 [Left] O2 Sat by Pulse 97 100 Oximetry General appearance: Present: no acute distress, well-nourished - EENT Eyes: PERRL, EOM intact ENT: hearing intact, clear oral mucosa Ears: bilateral: normal - Neck Neck: supple, normal ROM - Respiratory Respiratory effort: normal Respiratory: bilateral: CTA - Breasts Breasts: normal - Cardiovascular Rhythm: regular Heart Sounds: Present: S1 & S2. Absent: gallop, rub Extremities: pulses intact, No edema, normal color, Full ROM - Gastrointestinal General gastrointestinal: Present: soft, tender, normal bowel sounds - Genitourinary Female genitourinary: normal - Integumentary Integumentary: clear, warm, dry - Musculoskeletal Musculoskeletal: 1, strength equal bilaterally - Neurologic Neurologic: moves all extremities - Psychiatric Psychiatric: memory intact, appropriate mood/affect, intact judgment & insight - Allied health notes Allied health notes reviewed: nursing, case management - Labs CBC & Chem 7: 09/21/17 12:00 09/21/17 12:40 - Imaging and cardiology MRI - abdomen: report reviewed (MRCP Cholelithiasis Acute cholecystitis obstructing calculous at cystic duct and distal CBD)
[2017-09-23] MEDS: ZOFRAN IV PRN (06:15)
--- NOTE | 2017-09-23 08:06 | Anesthesia Consultation ---
Anesthesia Consult and Med Hx Date of service: 09/23/17 - Airway Anesthetic Teeth Evaluation: Good ROM Head & Neck: Adequate Mental/Hyoid Distance: Adequate Mallampati Class: Class II Intubation Access Assessment: Probably Good - Pulmonary Exam CTA: Yes - Cardiac Exam Cardiac Exam: RRR - Pre-Operative Health Status ASA Pre-Surgery Classification: ASA2 Proposed Anesthetic Plan: General - Pulmonary Hx Asthma: No COPD: No Hx Pneumonia: No - Cardiovascular System Hx Hypertension: Yes - Gastrointestinal Hx Gastroesophageal Reflux Disease: Yes - Endocrine Hx End Stage Renal Disease: No
--- NOTE | 2017-09-23 08:07 | Anesthesia Day of Surgery ---
Anesthesia Day of Surgery - Day of Surgery Patient Examined: Yes Patient H&P Reviewed: Yes Patient is NPO: Yes
[2017-09-23] MEDS ORDERED: TORADOL IV PRN (08:30)
[2017-09-23] MEDS: VERSED IV NR ×2 (08:51→09:16)
[2017-09-23] MEDS ORDERED: SUBLIMAZE ONE ×3 (08:59→13:22)
[2017-09-23] MEDS ORDERED: DIPRIVAN 10 MG/ML IV ONE (08:59)
[2017-09-23] MEDS ORDERED: LACTATED RINGERS 1,000 ML IV SCH (09:00)
[2017-09-23] MEDS ORDERED: XYLOCAINE MPF 2% ONE (09:00)
[2017-09-23] MEDS ORDERED: ZEMURON IV ONE (09:01)
[2017-09-23] MEDS ORDERED: ROBINUL ONE ×2 (09:01→09:02)
[2017-09-23] MEDS ORDERED: DECADRON ONE (09:02)
[2017-09-23] MEDS ORDERED: ZOFRAN ONE (09:02)
[2017-09-23] MEDS ORDERED: MARCAINE 0.5% 30 ML INFILTRATI ONE (09:43)
[2017-09-23] MEDS ORDERED: NEOSTIGMINE ONE (10:22)
[2017-09-23] MEDS ORDERED: MARCAINE-EPI 0.25%-1:200,000 INFILTRATI ONE (10:40)
[2017-09-23] MEDS ORDERED: NACL 0.9% IR ONE (10:41)
[2017-09-23] MEDS ORDERED: LACTATED RINGERS 1,000 ML ONE ×3 (11:05→14:00)
[2017-09-23] MEDS ORDERED: NACL 0.9% 500 ML 500 ML ONE (11:29)
[2017-09-23] MEDS ORDERED: NACL 0.9% 500 ML IRRIGATION ONE ×3 (11:41)
[2017-09-23] MEDS ORDERED: OMNIPAQUE 300 MG/50 ML (CATH LAB) IV ONE ×2 (11:41)
[2017-09-23] MEDS ORDERED: MARCAINE 0.5% INFILTRATI ONE (12:08)
[2017-09-23] MEDS ORDERED: NEO SYNEPHRINE ONE (12:19)
[2017-09-23] MEDS ORDERED: NACL 0.9% 100 ML ONE (12:19)
[2017-09-23] MEDS ORDERED: TORADOL ONE (13:33)
[2017-09-23] MEDS ORDERED: MORPHINE IV PRN (14:20)
[2017-09-23] MEDS: SUBLIMAZE IV PRN ×4 (15:01→15:20)
--- NOTE | 2017-09-23 15:01 | Post Anesthesia Evaluation ---
- Post Anesthesia Evaluation Patient Participated: Yes Airway Patent: Yes Stable Respiratory Function: Yes Temp > 96.8F: Yes Pain Manageable: Yes Adequeate Hydration: Yes Anesthesia Complications: No
[2017-09-23] MEDS: DILAUDID IV PRN ×5 (15:27→20:41)
--- NOTE | 2017-09-23 15:28 | Operative Report ---
PREOPERATIVE DIAGNOSIS: Rule out acute cholecystitis. POSTOPERATIVE DIAGNOSES: Acute cholecystitis with pregangrenous changes and extensive surrounding inflammation and edema. PROCEDURE: 1. Attempted laparoscopic cholecystectomy. 2. Conversion to open cholecystectomy. 3. Common bile duct repair. 4. T-tube insertion. SURGEON: Howard Medina MD DOUGH SCALER [employer] MIXER: Dr. Carlton. ANESTHESIA: General. ESTIMATED BLOOD LOSS: Minimal. DRAINS: No drains. COMPLICATIONS: None. DESCRIPTION OF PROCEDURE: The patient was taken to the operating room, prepped and draped in usual sterile fashion. Veress needle was inserted and CO2 insufflation begun. A 5 mm trocar was inserted and camera inserted. All other trocars were inserted under direct visualization. Gallbladder was noted to be acutely inflamed and distended. A laparoscopic needle was used to decompress the gallbladder. Gallbladder was then grasped at the fundus and infundibulum and retracted towards the right subphrenic space. Slow dissection was carried out along Calot's triangle. This area, however, was extremely adhered and scarred. No good exposure could be seen. Dissection was bluntly continued along Calot's triangle, but eventually anatomy could not be well delineated and thus it was decided to convert to open. Right subcostal incision was made and abdomen entered. Gallbladder was then grasped at the fundus and a retrograde cholecystectomy performed from fundus down towards the infundibulum. Again, even this proved quite difficult. The gallbladder was very distended and thickened. Slow dissection was carried down. The gallbladder was with wet laps from the transverse colon and stomach. Further dissection down the infundibulum revealed an area which appeared to be a common duct injury. Intraoperative cholangiogram was performed and indeed did confirm common duct injury. Proximal and distal common duct was then identified. Sutures were placed posteriorly to reanastomose the common duct. A T-tube was then placed and anterior sutures placed. Post T-tube insertion, cholangiography was then performed and read by the radiologist. This area confirms good repair with proper anatomy of the common duct and good flow into the duodenum. The area was irrigated copiously and dried. Checked for hemostasis and noted to be dry. The T-tube was once again flushed with some saline and no leakage noted. A 19 Jim was then also left draining the gallbladder fossa. The T-tube and the drain were brought out through a separate stab wound incision and secured to skin with 2-0 silk suture. Posterior fascia was then closed with running 0 Vicryl suture. Subcutaneous tissues irrigated and skin closed with chris. The patient tolerated the procedure well and left OR in stable condition. JOB# [id number] JASPREET/REINALDO
--- NOTE | 2017-09-23 15:47 | Fluoroscopy Report ---
2 FLUOROSCOPIC IMAGES AT AN INTRAOPERATIVE CHOLANGIOGRAM: 09/23/17 CLINICAL: Cholecystitis and choledocholithiasis. FINDINGS: To intraoperative images demonstrate opacification of the intrahepatic and extrahepatic bile ducts. Surgical clips are identified adjacent to the common bile duct. No stones are identified. More detail, present for the operative report.
--- NOTE | 2017-09-23 15:59 | Progress Note ---
Assessment and Plan - Patient Problems (1) Cholecystitis with cholelithiasis Current Visit: Yes Status: Acute Qualifiers: Cholelithiasis location: gallbladder and bile duct Cholecystitis acuity: acute Biliary obstruction: with biliary obstruction Qualified Code(s): K80.63 - Calculus of gallbladder and bile duct with acute cholecystitis with obstruction Plan to address problem: Patient for Cholecystectomy today. Per Dr Medina Necrotic Gall bladder which was removed (2) GERD (gastroesophageal reflux disease) Current Visit: Yes Status: Chronic Qualifiers: Esophagitis presence: with esophagitis Qualified Code(s): K21.0 - Gastro- esophageal reflux disease with esophagitis Plan to address problem: IV protonix for now (3) HLD (hyperlipidemia) Current Visit: Yes Status: Acute Plan to address problem: Hold statins (4) Depression Current Visit: Yes Status: Chronic Qualifiers: Depression Type: unspecified Qualified Code(s): F32.9 - Major depressive disorder, single episode, unspecified Plan to address problem: Hold Trazodone till postop (5) DVT prophylaxis Current Visit: Yes Status: Acute Plan to address problem: On Lovenox Subjective Date of service: 09/23/17 Principal diagnosis: Cholelithiasis and Acute Cholecystitis Interval history: For surgery today Objective - Constitutional Vitals: Vital Signs - 12hr 09/23/17 09/23/17 09/23/17 06:14 06:34 07:25 Temperature 98.8 F Pulse Rate 82 Respiratory 18 16 Rate Blood Pressure 135/78 Blood Pressure 161/102 [Left] O2 Sat by Pulse 99 Oximetry 09/23/17 09/23/17 09/23/17 07:50 08:10 14:05 Temperature 97.4 F L 98.8 F 97.1 F L Pulse Rate 81 81 74 Respiratory 20 16 Rate Blood Pressure 138/81 114/66 Blood Pressure 135/78 [Left] O2 Sat by Pulse 98 100 Oximetry 09/23/17 09/23/17 09/23/17 14:10 14:15 14:20 Temperature Pulse Rate 74 73 78 Respiratory 18 18 18 Rate Blood Pressure 110/62 117/63 126/83 Blood Pressure [Left] O2 Sat by Pulse 100 100 100 Oximetry 09/23/17 09/23/17 09/23/17 14:30 14:45 14:50 Temperature Pulse Rate 74 78 75 Respiratory 20 20 14 Rate Blood Pressure 131/77 130/79 135/74 Blood Pressure [Left] O2 Sat by Pulse 100 100 100 Oximetry 09/23/17 09/23/17 09/23/17 15:00 15:01 15:05 Temperature Pulse Rate 76 Respiratory 18 14 18 Rate Blood Pressure 127/78 Blood Pressure [Left] O2 Sat by Pulse 100 Oximetry 09/23/17 09/23/17 09/23/17 15:12 15:13 15:14 Temperature Pulse Rate Respiratory 18 16 18 Rate Blood Pressure Blood Pressure [Left] O2 Sat by Pulse Oximetry 09/23/17 09/23/17 09/23/17 15:15 15:20 15:27 Temperature Pulse Rate 75 Respiratory 18 18 18 Rate Blood Pressure 128/74 Blood Pressure [Left] O2 Sat by Pulse 98 Oximetry 09/23/17 09/23/17 09/23/17 15:30 15:37 15:38 Temperature 98.7 F Pulse Rate 87 Respiratory 22 20 22 Rate Blood Pressure 141/82 Blood Pressure [Left] O2 Sat by Pulse 100 Oximetry General appearance: Present: no acute distress, well-nourished - EENT Eyes: PERRL, EOM intact ENT: hearing intact, clear oral mucosa Ears: bilateral: normal - Neck Neck: supple, normal ROM - Respiratory Respiratory effort: normal Respiratory: bilateral: CTA - Breasts Breasts: normal - Cardiovascular Rhythm: regular Heart Sounds: Present: S1 & S2. Absent: gallop, rub Extremities: pulses intact, No edema, normal color, Full ROM - Gastrointestinal General gastrointestinal: Present: soft, non-tender, non-distended, normal bowel sounds - Genitourinary Female genitourinary: normal - Integumentary Integumentary: clear, warm, dry - Musculoskeletal Musculoskeletal: 1, strength equal bilaterally - Neurologic Neurologic: moves all extremities - Psychiatric Psychiatric: memory intact, appropriate mood/affect, intact judgment & insight - Labs CBC & Chem 7: 09/21/17 12:00 09/21/17 12:40
[2017-09-23] MEDS: LEVAQUIN 500MG/100ML 500 MG/100 ML BAG IV SCH (16:00)
[2017-09-23] MEDS: PEPCID IV SCH ×2 (17:08→21:00)
[2017-09-23] MEDS: D5W/0.45% NACL/KCL 30 MEQ 30 MEQ/1,000 ML BAG IV SCH (20:53)
[2017-09-23] MEDS: PERCOCET 5/325 PO PRN (23:44)
[2017-09-24] MEDS: ZOFRAN IV PRN (05:37)
[2017-09-24] MEDS: PERCOCET 5/325 PO PRN ×4 (05:38→20:52)
[2017-09-24 05:41] LABS: Basophils % (Auto) 0.4 % (0.0-1.8); Hematocrit 34.5 % (30.3-42.9); Hemoglobin 11.8 gm/dl (10.1-14.3); Mean Corpuscular HGB Conc 34 % (30-34); Mean Corpuscular Hemoglobin 31 pg (28-32); Mean Corpuscular Volume 91 fl (79-97); Platelet Count 370 K/mm3 (140-440); Red Cell Distribution Width 12.4 % (13.2-15.2); White Blood Count 12.9 K/mm3 (4.5-11.0)
[2017-09-24 06:01] LABS: Alanine Aminotransferase 84 units/L (7-56); Albumin/Globulin Ratio 0.9 %; Alkaline Phosphatase 135 units/L (35-129); Anion Gap 17 mmol/L; BUN/Creatinine Ratio 16; Blood Urea Nitrogen 8 mg/dL (7-17); Calcium 8.3 mg/dL (8.4-10.2); Carbon Dioxide 25 mmol/L (22-30); Chloride 101.1 mmol/L (98-107); Glucose 118 mg/dL (65-100); Potassium 3.6 mmol/L (3.6-5.0); Sodium 139 mmol/L (137-145); Total Protein 6.2 g/dL (6.3-8.2)
[2017-09-24] MEDS: PEPCID IV SCH ×2 (09:44→21:02)
--- NOTE | 2017-09-24 11:12 | Progress Note ---
Assessment and Plan Assessment and plan: This patient is a 47-year-old woman with history of hypertension, migraines and GERD who presented with abdominal pain. Limited ultrasound abdomen read as cholelithiasis and likely changes of cholecystitis are seen, mild common bile duct dilatation is seen, further evaluation with MRCP may be useful to assess for any ductal stones. MRCP read as cholelithiasis and gallbladder consistent with acute cholecystitis with 6 mm obstructing calculus at the cystic duct. 2 suspect obstructing Visit distant common bowel duct 3 no evidence of pancreatitis No obstructing distal common bile duct stone identified 09/23/2017 operative report, Dr. Medina Postoperative diagnosis: Acute cholecystitis with pre-gangrenous changes and extensive surrounding information and edema Procedure: 1. Attempted laparoscopic cholecystectomy 2. Conversion to open cholecystectomy 3. Common bowel duct repair 4. T-tube insertion -Sepsis was present on admission as evidenced by heart rate 103 and white blood cell count 12.5 with evidence of acute cholecystitis: Continue IV antibiotics -Acute cholecystitis with obstruction status post open cholecystectomy: Gen. surgery is still following, -Cholelithiasis see above -Common bowel duct dissection status post repair -DVT prophylaxis: Add subcutaneous heparin History Interval history: Patient was seen and examined. Follow-up on current diagnosis/abdominal pain which is still present. Overnight uneventful. Patient denies any chest pain, shortness breath, nausea/vomiting or severe headaches. Imaging, nursing note, chart, labs and old chart reviewed. Discussed with patient. at bedside Hospitalist Physical - Physical exam Narrative exam: GEN: Ill-appearing NAD, AWAKE, ALERT, ORIENTATED 3 HEENT: NCAT, EOMI, PERRL, OP Clear NECK: supple, no adenopathy, no thyromegaly, no JVD CVS/HEART: Regular, NORMAL S1S2, NO JVD, pulses present bilaterally CHEST/LUNGS: CTA B, Symmetrical chest expansion, good air entry bilaterally GI/Abdomen: soft, surgical changes the dressing intact, positive bowel sounds, no guarding or rebound, KAYDEN drain intact, and T tube drain is present also /Bladder: no suprapubic tenderness, no CVA or paraspinal tenderness EXT/Skin: no c/c/e, no obvious rash MSK: FROM x 4 Neuro: CN 2-12 grossly intact, no new focal deficits Psych: calm - Constitutional Vitals: Temp Pulse Resp BP Pulse Ox 98.4 F 70 18 108/79 100 09/24/17 08:00 09/24/17 08:00 09/24/17 08:00 09/24/17 08:00 09/24/17 08:00 General appearance: Present: no acute distress, well-nourished Results - Labs CBC & Chem 7: 09/24/17 04:48 09/24/17 04:48 Labs: Laboratory Last Values WBC 12.9 K/mm3 (4.5-11.0) H 09/24/17 04:48 RBC 3.80 M/mm3 (3.65-5.03) 09/24/17 04:48 Hgb 11.8 gm/dl (10.1-14.3) 09/24/17 04:48 Hct 34.5 % (30.3-42.9) 09/24/17 04:48 MCV 91 fl (79-97) 09/24/17 04:48 MCH 31 pg (28-32) 09/24/17 04:48 MCHC 34 % (30-34) 09/24/17 04:48 RDW 12.4 % (13.2-15.2) L 09/24/17 04:48 Plt Count 370 K/mm3 (140-440) 09/24/17 04:48 Lymph % (Auto) 16.3 % (13.4-35.0) 09/24/17 04:48 [place] % (Auto) 7.6 % (0.0-7.3) H 09/24/17 04:48 Eos % (Auto) 0.0 % (0.0-4.3) 09/24/17 04:48 Baso % (Auto) 0.4 % (0.0-1.8) 09/24/17 04:48 Lymph # 2.1 K/mm3 (1.2-5.4) 09/24/17 04:48 [place] # 1.0 K/mm3 (0.0-0.8) H 09/24/17 04:48 Eos # 0.0 K/mm3 (0.0-0.4) 09/24/17 04:48 Baso # 0.1 K/mm3 (0.0-0.1) 09/24/17 04:48 Seg Neutrophils % 75.7 % (40.0-70.0) H 09/24/17 04:48 Seg Neutrophils # 9.8 K/mm3 (1.8-7.7) H 09/24/17 04:48 D-Dimer 511.72 ng/mlDDU (0-234) H 09/21/17 17:23 Sodium 139 mmol/L (137-145) 09/24/17 04:48 Potassium 3.6 mmol/L (3.6-5.0) 09/24/17 04:48 Chloride 101.1 mmol/L (98-107) 09/24/17 04:48 Carbon Dioxide 25 mmol/L (22-30) 09/24/17 04:48 Anion Gap 17 mmol/L 09/24/17 04:48 BUN 8 mg/dL (7-17) 09/24/17 04:48 Creatinine 0.5 mg/dL (0.7-1.2) L 09/24/17 04:48 Estimated GFR > 60 ml/min 09/24/17 04:48 BUN/Creatinine Ratio 16 % 09/24/17 04:48 Glucose 118 mg/dL (65-100) H 09/24/17 04:48 Calcium 8.3 mg/dL (8.4-10.2) L 09/24/17 04:48 Total Bilirubin 0.40 mg/dL (0.1-1.2) 09/24/17 04:48 AST 91 units/L (5-40) H 09/24/17 04:48 ALT 84 units/L (7-56) H 09/24/17 04:48 Alkaline Phosphatase 135 units/L (35-129) H 09/24/17 04:48 Total Protein 6.2 g/dL (6.3-8.2) L 09/24/17 04:48 Albumin 3.0 g/dL (3.9-5) L 09/24/17 04:48 Albumin/Globulin Ratio 0.9 % 09/24/17 04:48 Lipase 14 units/L (13-60) 09/21/17 12:40 HCG, Qual Negative (Negative) 09/21/17 18:11 Urine Color Yellow (Yellow) 09/21/17 12:34 Urine Turbidity Clear (Clear) 09/21/17 12:34 Urine pH 5.0 (5.0-7.0) 09/21/17 12:34 Ur Specific [place] 1.018 (1.003-1.030) 09/21/17 12:34 Urine Protein <15 mg/dl mg/dL (Negative) 09/21/17 12:34 Urine Glucose (UA) Neg mg/dL (Negative) 09/21/17 12:34 Urine Ketones Neg mg/dL (Negative) 09/21/17 12:34 Urine Blood Neg (Negative) 09/21/17 12:34 Urine Nitrite Neg (Negative) 09/21/17 12:34 Urine Bilirubin Neg (Negative) 09/21/17 12:34 Urine Urobilinogen < 2.0 mg/dL (<2.0) 09/21/17 12:34 Ur Leukocyte Esterase Neg (Negative) 09/21/17 12:34 Urine WBC (Auto) 1.0 /HPF (0.0-6.0) 09/21/17 12:34 Urine RBC (Auto) 2.0 /HPF (0.0-6.0) 09/21/17 12:34 U Epithel Cells (Auto) 2.0 /HPF (0-13.0) 09/21/17 12:34 Urine Bacteria (Auto) 1+ /HPF (Negative) 09/21/17 12:34 Hyaline Casts 1 /LPF 09/21/17 12:34 Urine Mucus 3+ /HPF 09/21/17 12:34
--- NOTE | 2017-09-24 11:50 | Progress Note ---
Assessment and Plan POD # 1 Pt feeling well c/o incisional pain Abd soft, dressings dry. bile noted in bile bag. minimal drainage from KAYDEN tube stable labs good (as below) T Justin 0.4 d/c blake today OOB as brant probable d/c ng in am Selected Entries 09/21/17 09/22/17 09/24/17 21:31 10:11 08:00 Temperature 98.1 F 98.4 F Pulse Rate 70 Respiratory 16 18 Rate Blood Pressure 108/79 [Left] Laboratory Tests 09/24/17 09/24/17 04:48 04:48 WBC 12.9 H Hgb 11.8 Hct 34.5 Sodium 139 Potassium 3.6 Chloride 101.1 Carbon Dioxide 25 Anion Gap 17 BUN 8 Glucose 118 H Calcium 8.3 L Total Bilirubin 0.40 AST 91 H ALT 84 H Alkaline Phosphatase 135 H Objective Vital Signs - 12hr 09/24/17 09/24/17 09/24/17 00:48 00:56 04:36 Temperature 99.5 F 99.3 F Pulse Rate 95 H 96 H 81 Respiratory 18 20 Rate Blood Pressure 130/84 Blood Pressure 150/91 [Left] O2 Sat by Pulse 99 98 100 Oximetry 09/24/17 08:00 Temperature 98.4 F Pulse Rate 70 Respiratory 18 Rate Blood Pressure Blood Pressure 108/79 [Left] O2 Sat by Pulse 100 Oximetry - Labs 09/24/17 04:48 09/24/17 04:48 Diabetes panel 09/24/17 Range/Units 04:48 Sodium 139 (137-145) mmol/L Potassium 3.6 (3.6-5.0) mmol/L Chloride 101.1 (98-107) mmol/L Carbon Dioxide 25 (22-30) mmol/L BUN 8 (7-17) mg/dL Creatinine 0.5 L (0.7-1.2) mg/dL Glucose 118 H (65-100) mg/dL Calcium 8.3 L (8.4-10.2) mg/dL AST 91 H (5-40) units/L ALT 84 H (7-56) units/L Alkaline Phosphatase 135 H (35-129) units/L Total Protein 6.2 L (6.3-8.2) g/dL Albumin 3.0 L (3.9-5) g/dL Calcium panel 09/24/17 Range/Units 04:48 Calcium 8.3 L (8.4-10.2) mg/dL Albumin 3.0 L (3.9-5) g/dL Pituitary panel 09/24/17 Range/Units 04:48 Sodium 139 (137-145) mmol/L Potassium 3.6 (3.6-5.0) mmol/L Chloride 101.1 (98-107) mmol/L Carbon Dioxide 25 (22-30) mmol/L BUN 8 (7-17) mg/dL Creatinine 0.5 L (0.7-1.2) mg/dL Glucose 118 H (65-100) mg/dL Calcium 8.3 L (8.4-10.2) mg/dL Adrenal panel 09/24/17 Range/Units 04:48 Sodium 139 (137-145) mmol/L Potassium 3.6 (3.6-5.0) mmol/L Chloride 101.1 (98-107) mmol/L Carbon Dioxide 25 (22-30) mmol/L BUN 8 (7-17) mg/dL Creatinine 0.5 L (0.7-1.2) mg/dL Glucose 118 H (65-100) mg/dL Calcium 8.3 L (8.4-10.2) mg/dL Total Bilirubin 0.40 (0.1-1.2) mg/dL AST 91 H (5-40) units/L ALT 84 H (7-56) units/L Alkaline Phosphatase 135 H (35-129) units/L Total Protein 6.2 L (6.3-8.2) g/dL Albumin 3.0 L (3.9-5) g/dL
[2017-09-24] MEDS ORDERED: CHLORASEPTIC MM PRN (11:51)
[2017-09-24] MEDS ORDERED: CEPACOL X STRENGTH MM PRN (12:43)
[2017-09-24 13:16] LABS: Ketones,Urine 20 mg/dL (Negative); Leukocyte Esterase,Urine Small (Negative)
[2017-09-24 13:17] LABS: Bilirubin,Urine Negative (Negative); Blood,Urine Moderate (Negative); Mucus,Urine 3+ /HPF; Nitrite,Urine Negative (Negative); Protein,Urine <15 mg/dL mg/dL (Negative); Urobilinogen,Urine < 2.0 mg/dL (<2.0)
[2017-09-24] MEDS: DILAUDID IV PRN (13:37)
[2017-09-24] MEDS: LEVAQUIN 500MG/100ML 500 MG/100 ML BAG IV SCH (16:54)
[2017-09-24] MEDS: D5W/0.45% NACL/KCL 30 MEQ 30 MEQ/1,000 ML BAG IV SCH (18:01)
[2017-09-24] MEDS: HEPARIN SUB-Q SCH (21:02)
[2017-09-25] MEDS: PERCOCET 5/325 PO PRN ×2 (03:15→07:40)
[2017-09-25 04:54] LABS: Hematocrit 34.8 % (30.3-42.9); Hemoglobin 11.4 gm/dl (10.1-14.3); Mean Corpuscular HGB Conc 33 % (30-34); Mean Corpuscular Hemoglobin 29 pg (28-32); Mean Corpuscular Volume 90 fl (79-97); Platelet Count 373 K/mm3 (140-440); Red Blood Count 3.88 M/mm3 (3.65-5.03); Red Cell Distribution Width 12.9 % (13.2-15.2); White Blood Count 11.3 K/mm3 (4.5-11.0)
[2017-09-25 05:12] LABS: Anion Gap 16 mmol/L; BUN/Creatinine Ratio 16; Blood Urea Nitrogen 8 mg/dL (7-17); Calcium 8.3 mg/dL (8.4-10.2); Carbon Dioxide 27 mmol/L (22-30); Chloride 98.5 mmol/L (98-107); Glucose 111 mg/dL (65-100); Potassium 3.5 mmol/L (3.6-5.0); Sodium 138 mmol/L (137-145)
[2017-09-25] MEDS: HEPARIN SUB-Q SCH ×3 (06:25→22:29)
[2017-09-25] MEDS: D5W/0.45% NACL/KCL 30 MEQ 30 MEQ/1,000 ML BAG IV SCH (09:59)
[2017-09-25] MEDS: PEPCID IV SCH ×2 (09:59→22:29)
[2017-09-25] MEDS ORDERED: NORCO 5/325 PO PRN (11:16)
[2017-09-25] MEDS: NORCO 5/325 PO PRN ×3 (11:23→19:44)
--- NOTE | 2017-09-25 13:17 | Progress Note ---
Assessment and Plan Assessment and plan: This patient is a 47-year-old woman with history of hypertension, migraines and GERD who presented with abdominal pain. Limited ultrasound abdomen read as cholelithiasis and likely changes of cholecystitis are seen, mild common bile duct dilatation is seen, further evaluation with MRCP may be useful to assess for any ductal stones. MRCP read as cholelithiasis and gallbladder consistent with acute cholecystitis with 6 mm obstructing calculus at the cystic duct. 2 suspect obstructing Visit distant common bowel duct 3 no evidence of pancreatitis No obstructing distal common bile duct stone identified 09/23/2017 operative report, Dr. Medina Postoperative diagnosis: Acute cholecystitis with pre-gangrenous changes and extensive surrounding information and edema Procedure: 1. Attempted laparoscopic cholecystectomy 2. Conversion to open cholecystectomy 3. Common bowel duct repair 4. T-tube insertion -Sepsis was present on admission as evidenced by heart rate 103 and white blood cell count 12.5 with evidence of acute cholecystitis: Continue IV antibiotics -Acute cholecystitis with obstruction status post open cholecystectomy: Gen. surgery is still following, -Cholelithiasis see above -Common bowel duct dissection status post repair -DVT prophylaxis: Add subcutaneous heparin 09/25/17: ngt removed. History Interval history: Patient was seen and examined. Follow-up on current diagnosis/abdominal pain which is still present. Overnight uneventful. Patient denies any chest pain, shortness breath, nausea/vomiting or severe headaches. Imaging, nursing note, chart, labs and old chart reviewed. Discussed with patient. at bedside Hospitalist Physical - Physical exam Narrative exam: GEN: Ill-appearing NAD, AWAKE, ALERT, ORIENTATED 3 HEENT: NCAT, EOMI, PERRL, OP Clear NECK: supple, no adenopathy, no thyromegaly, no JVD CVS/HEART: Regular, NORMAL S1S2, NO JVD, pulses present bilaterally CHEST/LUNGS: CTA B, Symmetrical chest expansion, good air entry bilaterally GI/Abdomen: soft, surgical changes the dressing intact, positive bowel sounds, no guarding or rebound, KAYDEN drain intact, and T tube drain is present also /Bladder: no suprapubic tenderness, no CVA or paraspinal tenderness EXT/Skin: no c/c/e, no obvious rash MSK: FROM x 4 Neuro: CN 2-12 grossly intact, no new focal deficits Psych: calm - Constitutional Vitals: Temp Pulse Resp BP Pulse Ox 97.6 F 75 20 126/73 96 09/25/17 11:41 09/25/17 11:41 09/25/17 11:41 09/25/17 11:41 09/25/17 11:41 General appearance: Present: no acute distress, well-nourished Results - Labs CBC & Chem 7: 09/25/17 04:24 09/25/17 04:24 Labs: Laboratory Last Values WBC 11.3 K/mm3 (4.5-11.0) H 09/25/17 04:24 RBC 3.88 M/mm3 (3.65-5.03) 09/25/17 04:24 Hgb 11.4 gm/dl (10.1-14.3) 09/25/17 04:24 Hct 34.8 % (30.3-42.9) 09/25/17 04:24 MCV 90 fl (79-97) 09/25/17 04:24 MCH 29 pg (28-32) 09/25/17 04:24 MCHC 33 % (30-34) 09/25/17 04:24 RDW 12.9 % (13.2-15.2) L 09/25/17 04:24 Plt Count 373 K/mm3 (140-440) 09/25/17 04:24 Lymph % (Auto) 16.3 % (13.4-35.0) 09/24/17 04:48 [place] % (Auto) 7.6 % (0.0-7.3) H 09/24/17 04:48 Eos % (Auto) 0.0 % (0.0-4.3) 09/24/17 04:48 Baso % (Auto) 0.4 % (0.0-1.8) 09/24/17 04:48 Lymph # 2.1 K/mm3 (1.2-5.4) 09/24/17 04:48 [place] # 1.0 K/mm3 (0.0-0.8) H 09/24/17 04:48 Eos # 0.0 K/mm3 (0.0-0.4) 09/24/17 04:48 Baso # 0.1 K/mm3 (0.0-0.1) 09/24/17 04:48 Seg Neutrophils % 75.7 % (40.0-70.0) H 09/24/17 04:48 Seg Neutrophils # 9.8 K/mm3 (1.8-7.7) H 09/24/17 04:48 D-Dimer 511.72 ng/mlDDU (0-234) H 09/21/17 17:23 Sodium 138 mmol/L (137-145) 09/25/17 04:24 Potassium 3.5 mmol/L (3.6-5.0) L 09/25/17 04:24 Chloride 98.5 mmol/L (98-107) 09/25/17 04:24 Carbon Dioxide 27 mmol/L (22-30) 09/25/17 04:24 Anion Gap 16 mmol/L 09/25/17 04:24 BUN 8 mg/dL (7-17) 09/25/17 04:24 Creatinine 0.5 mg/dL (0.7-1.2) L 09/25/17 04:24 Estimated GFR > 60 ml/min 09/25/17 04:24 BUN/Creatinine Ratio 16 % 09/25/17 04:24 Glucose 111 mg/dL (65-100) H 09/25/17 04:24 Calcium 8.3 mg/dL (8.4-10.2) L 09/25/17 04:24 Magnesium 1.80 mg/dL (1.7-2.3) 09/25/17 04:24 Total Bilirubin 0.40 mg/dL (0.1-1.2) 09/24/17 04:48 AST 91 units/L (5-40) H 09/24/17 04:48 ALT 84 units/L (7-56) H 09/24/17 04:48 Alkaline Phosphatase 135 units/L (35-129) H 09/24/17 04:48 Total Protein 6.2 g/dL (6.3-8.2) L 09/24/17 04:48 Albumin 3.0 g/dL (3.9-5) L 09/24/17 04:48 Albumin/Globulin Ratio 0.9 % 09/24/17 04:48 Lipase 14 units/L (13-60) 09/21/17 12:40 HCG, Qual Negative (Negative) 09/21/17 18:11 Urine Color Yellow (Yellow) 09/24/17 Unknown Urine Turbidity Clear (Clear) 09/24/17 Unknown Urine pH 5.0 (5.0-7.0) 09/24/17 Unknown Ur Specific [place] 1.024 (1.003-1.030) 09/24/17 Unknown Urine Protein <15 mg/dl mg/dL (Negative) 09/24/17 Unknown Urine Glucose (UA) Negative mg/dL (Negative) 09/24/17 Unknown Urine Ketones 20 mg/dL (Negative) 09/24/17 Unknown Urine Blood Moderate (Negative) A 09/24/17 Unknown Urine Nitrite Negative (Negative) 09/24/17 Unknown Urine Bilirubin Negative (Negative) 09/24/17 Unknown Urine Urobilinogen < 2.0 mg/dL (<2.0) 09/24/17 Unknown Ur Leukocyte Esterase Small (Negative) 09/24/17 Unknown Urine WBC (Auto) 22.0 /HPF (0.0-6.0) H 09/24/17 Unknown Urine RBC (Auto) 26.0 /HPF (0.0-6.0) 09/24/17 Unknown U Epithel Cells (Auto) 2.0 /HPF (0-13.0) 09/21/17 12:34 Urine Bacteria (Auto) 1+ /HPF (Negative) 09/21/17 12:34 Hyaline Casts 1 /LPF 09/21/17 12:34 Urine Mucus 3+ /HPF 09/24/17 Unknown
[2017-09-25] MEDS ORDERED: KCL 20 MEQ in NACL 0.9% 250ML 250 ML IV ONE (13:45)
[2017-09-25] MEDS ORDERED: KCL 10MEQ/100ML 10 MEQ/100 ML BAG IV SCH (14:00)
[2017-09-25] MEDS: LEVAQUIN 500MG/100ML 500 MG/100 ML BAG IV SCH (16:01)
[2017-09-26] MEDS: NORCO 5/325 PO PRN ×6 (00:01→22:15)
[2017-09-26 04:36] LABS: Hematocrit 33.6 % (30.3-42.9); Hemoglobin 11.5 gm/dl (10.1-14.3); Mean Corpuscular HGB Conc 34 % (30-34); Mean Corpuscular Hemoglobin 31 pg (28-32); Mean Corpuscular Volume 89 fl (79-97); Platelet Count 367 K/mm3 (140-440); Red Blood Count 3.76 M/mm3 (3.65-5.03); Red Cell Distribution Width 12.6 % (13.2-15.2)
[2017-09-26 04:49] LABS: Anion Gap 14 mmol/L; BUN/Creatinine Ratio 10; Blood Urea Nitrogen 6 mg/dL (7-17); Calcium 8.5 mg/dL (8.4-10.2); Carbon Dioxide 28 mmol/L (22-30); Chloride 101.4 mmol/L (98-107); Glucose 103 mg/dL (65-100); Potassium 3.8 mmol/L (3.6-5.0); Sodium 140 mmol/L (137-145)
[2017-09-26] MEDS: D5W/0.45% NACL/KCL 30 MEQ 30 MEQ/1,000 ML BAG IV SCH ×2 (04:49→14:40)
[2017-09-26] MEDS: HEPARIN SUB-Q SCH ×4 (04:49→22:15)
[2017-09-26] MEDS: PEPCID IV SCH ×2 (09:04→22:15)
--- NOTE | 2017-09-26 12:10 | Progress Note ---
Assessment and Plan POD # 3 KAYDEN - 170 cc T-tube - 550 cc bile Pt feeling well. + flatus. brant d/c of ng yest without compl. hungry Abd soft, dressings dry. + BS stable cl liq diet today Selected Entries 09/26/17 09/26/17 09/26/17 07:15 07:19 10:00 Temperature 98.0 F Respiratory Rate Respiratory 20 Rate [Abdomen] Blood Pressure 147/80 09/26/17 10:03 Temperature Respiratory 20 Rate Respiratory Rate [Abdomen] Blood Pressure Laboratory Tests 09/26/17 09/26/17 04:09 04:09 WBC 9.0 Hgb 11.5 Hct 33.6 Sodium 140 Potassium 3.8 Chloride 101.4 Carbon Dioxide 28 BUN 6 L Creatinine 0.6 L Objective Vital Signs - 12hr 09/26/17 09/26/17 09/26/17 04:38 07:15 07:19 Temperature 98.0 F 98.0 F Pulse Rate 68 67 Respiratory 20 Rate Respiratory Rate [Abdomen] Blood Pressure 142/84 147/80 O2 Sat by Pulse 98 97 Oximetry 09/26/17 09/26/17 10:00 10:03 Temperature Pulse Rate Respiratory 20 Rate Respiratory 20 Rate [Abdomen] Blood Pressure O2 Sat by Pulse Oximetry - Labs 09/26/17 04:09 09/26/17 04:09 Diabetes panel 09/26/17 Range/Units 04:09 Sodium 140 (137-145) mmol/L Potassium 3.8 (3.6-5.0) mmol/L Chloride 101.4 (98-107) mmol/L Carbon Dioxide 28 (22-30) mmol/L BUN 6 L (7-17) mg/dL Creatinine 0.6 L (0.7-1.2) mg/dL Glucose 103 H (65-100) mg/dL Calcium 8.5 (8.4-10.2) mg/dL Calcium panel 09/26/17 Range/Units 04:09 Calcium 8.5 (8.4-10.2) mg/dL Pituitary panel 09/26/17 Range/Units 04:09 Sodium 140 (137-145) mmol/L Potassium 3.8 (3.6-5.0) mmol/L Chloride 101.4 (98-107) mmol/L Carbon Dioxide 28 (22-30) mmol/L BUN 6 L (7-17) mg/dL Creatinine 0.6 L (0.7-1.2) mg/dL Glucose 103 H (65-100) mg/dL Calcium 8.5 (8.4-10.2) mg/dL Adrenal panel 09/26/17 Range/Units 04:09 Sodium 140 (137-145) mmol/L Potassium 3.8 (3.6-5.0) mmol/L Chloride 101.4 (98-107) mmol/L Carbon Dioxide 28 (22-30) mmol/L BUN 6 L (7-17) mg/dL Creatinine 0.6 L (0.7-1.2) mg/dL Glucose 103 H (65-100) mg/dL Calcium 8.5 (8.4-10.2) mg/dL
[2017-09-26] MEDS: ZOFRAN IV PRN (12:48)
--- NOTE | 2017-09-26 13:31 | Progress Note ---
Assessment and Plan Assessment and plan: This patient is a 47-year-old woman with history of hypertension, migraines and GERD who presented with abdominal pain. Limited ultrasound abdomen read as cholelithiasis and likely changes of cholecystitis are seen, mild common bile duct dilatation is seen, further evaluation with MRCP may be useful to assess for any ductal stones. MRCP read as cholelithiasis and gallbladder consistent with acute cholecystitis with 6 mm obstructing calculus at the cystic duct. 2 suspect obstructing Visit distant common bowel duct 3 no evidence of pancreatitis No obstructing distal common bile duct stone identified 09/23/2017 operative report, Dr. Medina Postoperative diagnosis: Acute cholecystitis with pre-gangrenous changes and extensive surrounding information and edema Procedure: 1. Attempted laparoscopic cholecystectomy 2. Conversion to open cholecystectomy 3. Common bowel duct repair 4. T-tube insertion -Sepsis was present on admission as evidenced by heart rate 103 and white blood cell count 12.5 with evidence of acute cholecystitis: Continue IV antibiotics -Acute cholecystitis with obstruction status post open cholecystectomy: Gen. surgery is still following, -Cholelithiasis see above -Common bowel duct dissection status post repair -DVT prophylaxis: Add subcutaneous heparin 09/25/17: ngt removed. History Interval history: Patient was seen and examined. Follow-up on current diagnosis/abdominal pain which is still present. Overnight uneventful. Patient denies any chest pain, shortness breath, nausea/vomiting or severe headaches. Imaging, nursing note, chart, labs and old chart reviewed. Discussed with patient. at bedside Hospitalist Physical - Physical exam Narrative exam: GEN: Ill-appearing NAD, AWAKE, ALERT, ORIENTATED 3 HEENT: NCAT, EOMI, PERRL, OP Clear NECK: supple, no adenopathy, no thyromegaly, no JVD CVS/HEART: Regular, NORMAL S1S2, NO JVD, pulses present bilaterally CHEST/LUNGS: CTA B, Symmetrical chest expansion, good air entry bilaterally GI/Abdomen: soft, surgical changes the dressing intact, positive bowel sounds, no guarding or rebound, KAYDEN drain intact, and T tube drain is present also /Bladder: no suprapubic tenderness, no CVA or paraspinal tenderness EXT/Skin: no c/c/e, no obvious rash MSK: FROM x 4 Neuro: CN 2-12 grossly intact, no new focal deficits Psych: calm - Constitutional Vitals: Temp Pulse Resp BP Pulse Ox 99.1 F 71 18 138/88 94 09/26/17 12:33 09/26/17 12:33 09/26/17 12:33 09/26/17 12:33 09/26/17 12:33 General appearance: Present: no acute distress, well-nourished Results - Labs CBC & Chem 7: 09/26/17 04:09 09/26/17 04:09 Labs: Laboratory Last Values WBC 9.0 K/mm3 (4.5-11.0) 09/26/17 04:09 RBC 3.76 M/mm3 (3.65-5.03) 09/26/17 04:09 Hgb 11.5 gm/dl (10.1-14.3) 09/26/17 04:09 Hct 33.6 % (30.3-42.9) 09/26/17 04:09 MCV 89 fl (79-97) 09/26/17 04:09 MCH 31 pg (28-32) 09/26/17 04:09 MCHC 34 % (30-34) 09/26/17 04:09 RDW 12.6 % (13.2-15.2) L 09/26/17 04:09 Plt Count 367 K/mm3 (140-440) 09/26/17 04:09 Lymph % (Auto) 16.3 % (13.4-35.0) 09/24/17 04:48 [place] % (Auto) 7.6 % (0.0-7.3) H 09/24/17 04:48 Eos % (Auto) 0.0 % (0.0-4.3) 09/24/17 04:48 Baso % (Auto) 0.4 % (0.0-1.8) 09/24/17 04:48 Lymph # 2.1 K/mm3 (1.2-5.4) 09/24/17 04:48 [place] # 1.0 K/mm3 (0.0-0.8) H 09/24/17 04:48 Eos # 0.0 K/mm3 (0.0-0.4) 09/24/17 04:48 Baso # 0.1 K/mm3 (0.0-0.1) 09/24/17 04:48 Seg Neutrophils % 75.7 % (40.0-70.0) H 09/24/17 04:48 Seg Neutrophils # 9.8 K/mm3 (1.8-7.7) H 09/24/17 04:48 D-Dimer 511.72 ng/mlDDU (0-234) H 09/21/17 17:23 Sodium 140 mmol/L (137-145) 09/26/17 04:09 Potassium 3.8 mmol/L (3.6-5.0) 09/26/17 04:09 Chloride 101.4 mmol/L (98-107) 09/26/17 04:09 Carbon Dioxide 28 mmol/L (22-30) 09/26/17 04:09 Anion Gap 14 mmol/L 09/26/17 04:09 BUN 6 mg/dL (7-17) L 09/26/17 04:09 Creatinine 0.6 mg/dL (0.7-1.2) L 09/26/17 04:09 Estimated GFR > 60 ml/min 09/26/17 04:09 BUN/Creatinine Ratio 10 % 09/26/17 04:09 Glucose 103 mg/dL (65-100) H 09/26/17 04:09 Calcium 8.5 mg/dL (8.4-10.2) 09/26/17 04:09 Magnesium 1.80 mg/dL (1.7-2.3) 09/25/17 04:24 Total Bilirubin 0.40 mg/dL (0.1-1.2) 09/24/17 04:48 AST 91 units/L (5-40) H 09/24/17 04:48 ALT 84 units/L (7-56) H 09/24/17 04:48 Alkaline Phosphatase 135 units/L (35-129) H 09/24/17 04:48 Total Protein 6.2 g/dL (6.3-8.2) L 09/24/17 04:48 Albumin 3.0 g/dL (3.9-5) L 09/24/17 04:48 Albumin/Globulin Ratio 0.9 % 09/24/17 04:48 Lipase 14 units/L (13-60) 09/21/17 12:40 HCG, Qual Negative (Negative) 09/21/17 18:11 Urine Color Yellow (Yellow) 09/24/17 Unknown Urine Turbidity Clear (Clear) 09/24/17 Unknown Urine pH 5.0 (5.0-7.0) 09/24/17 Unknown Ur Specific [place] 1.024 (1.003-1.030) 09/24/17 Unknown Urine Protein <15 mg/dl mg/dL (Negative) 09/24/17 Unknown Urine Glucose (UA) Negative mg/dL (Negative) 09/24/17 Unknown Urine Ketones 20 mg/dL (Negative) 09/24/17 Unknown Urine Blood Moderate (Negative) A 09/24/17 Unknown Urine Nitrite Negative (Negative) 09/24/17 Unknown Urine Bilirubin Negative (Negative) 09/24/17 Unknown Urine Urobilinogen < 2.0 mg/dL (<2.0) 09/24/17 Unknown Ur Leukocyte Esterase Small (Negative) 09/24/17 Unknown Urine WBC (Auto) 22.0 /HPF (0.0-6.0) H 09/24/17 Unknown Urine RBC (Auto) 26.0 /HPF (0.0-6.0) 09/24/17 Unknown U Epithel Cells (Auto) 2.0 /HPF (0-13.0) 09/21/17 12:34 Urine Bacteria (Auto) 1+ /HPF (Negative) 09/21/17 12:34 Hyaline Casts 1 /LPF 09/21/17 12:34 Urine Mucus 3+ /HPF 09/24/17 Unknown
[2017-09-26] MEDS: LEVAQUIN 500MG/100ML 500 MG/100 ML BAG IV SCH (15:47)
[2017-09-27] MEDS: NORCO 5/325 PO PRN ×5 (01:29→22:03)
[2017-09-27 04:27] LABS: Basophils % (Auto) 0.9 % (0.0-1.8); Eosinophils % (Auto) 3.9 % (0.0-4.3); Hematocrit 34.8 % (30.3-42.9); Hemoglobin 11.7 gm/dl (10.1-14.3); Mean Corpuscular HGB Conc 34 % (30-34); Mean Corpuscular Hemoglobin 30 pg (28-32); Mean Corpuscular Volume 90 fl (79-97); Platelet Count 387 K/mm3 (140-440); Red Blood Count 3.89 M/mm3 (3.65-5.03); Red Cell Distribution Width 12.4 % (13.2-15.2); White Blood Count 9.3 K/mm3 (4.5-11.0)
[2017-09-27 04:38] LABS: Alanine Aminotransferase 54 units/L (7-56); Albumin 3.3 g/dL (3.9-5); Albumin/Globulin Ratio 0.9 %; Alkaline Phosphatase 142 units/L (35-129); Anion Gap 11 mmol/L; BUN/Creatinine Ratio 7; Blood Urea Nitrogen 4 mg/dL (7-17); Calcium 8.7 mg/dL (8.4-10.2); Carbon Dioxide 30 mmol/L (22-30); Chloride 100.3 mmol/L (98-107); Glucose 100 mg/dL (65-100); Potassium 3.7 mmol/L (3.6-5.0); Sodium 138 mmol/L (137-145); Total Protein 6.9 g/dL (6.3-8.2)
[2017-09-27] MEDS: D5W/0.45% NACL/KCL 30 MEQ 30 MEQ/1,000 ML BAG IV SCH ×2 (04:50→22:10)
[2017-09-27] MEDS: HEPARIN SUB-Q SCH ×3 (06:42→22:05)
--- NOTE | 2017-09-27 08:53 | Progress Note ---
Assessment and Plan Assessment and plan: This patient is a 47-year-old woman with history of hypertension, migraines and GERD who presented with abdominal pain. Limited ultrasound abdomen read as cholelithiasis and likely changes of cholecystitis are seen, mild common bile duct dilatation is seen, further evaluation with MRCP may be useful to assess for any ductal stones. MRCP read as cholelithiasis and gallbladder consistent with acute cholecystitis with 6 mm obstructing calculus at the cystic duct. 2 suspect obstructing Visit distant common bowel duct 3 no evidence of pancreatitis No obstructing distal common bile duct stone identified 09/23/2017 operative report, Dr. Medina Postoperative diagnosis: Acute cholecystitis with pre-gangrenous changes and extensive surrounding information and edema Procedure: 1. Attempted laparoscopic cholecystectomy 2. Conversion to open cholecystectomy 3. Common bowel duct repair 4. T-tube insertion -Sepsis was present on admission as evidenced by heart rate 103 and white blood cell count 12.5 with evidence of acute cholecystitis: Continue IV antibiotics -Acute cholecystitis with obstruction status post open cholecystectomy: Gen. surgery is still following, -Cholelithiasis see above -Common bowel duct dissection status post repair -DVT prophylaxis: Add subcutaneous heparin 09/25/17: ngt removed. 09/26/17: ice chips started 09/27/17: still no bm or gas, practice incentive spirometry, she is waiting to get a sponge bath. History Interval history: Follow-up on current diagnosis/abdominal pain which is still present. Overnight uneventful. Patient denies any chest pain, shortness breath, nausea/ vomiting or severe headaches. Imaging, nursing note, chart, labs and old chart reviewed. Discussed with patient. at bedside Hospitalist Physical - Physical exam Narrative exam: GEN: Ill-appearing NAD, AWAKE, ALERT, ORIENTATED 3 HEENT: NCAT, EOMI, PERRL, OP Clear NECK: supple, no adenopathy, no thyromegaly, no JVD CVS/HEART: Regular, NORMAL S1S2, NO JVD, pulses present bilaterally CHEST/LUNGS: CTA B, Symmetrical chest expansion, good air entry bilaterally GI/Abdomen: soft, surgical changes the dressing intact, positive bowel sounds, no guarding or rebound, KAYDEN drain intact, and T tube drain is present also /Bladder: no suprapubic tenderness, no CVA or paraspinal tenderness EXT/Skin: no c/c/e, no obvious rash MSK: FROM x 4 Neuro: CN 2-12 grossly intact, no new focal deficits Psych: calm - Constitutional Vitals: Temp Pulse Resp BP Pulse Ox 98.6 F 62 18 147/79 100 09/27/17 08:00 09/27/17 08:00 09/27/17 08:00 09/27/17 08:00 09/27/17 08:00 General appearance: Present: no acute distress, well-nourished Results - Labs CBC & Chem 7: 09/27/17 04:07 09/27/17 04:07 Labs: Laboratory Last Values WBC 9.3 K/mm3 (4.5-11.0) 09/27/17 04:07 RBC 3.89 M/mm3 (3.65-5.03) 09/27/17 04:07 Hgb 11.7 gm/dl (10.1-14.3) 09/27/17 04:07 Hct 34.8 % (30.3-42.9) 09/27/17 04:07 MCV 90 fl (79-97) 09/27/17 04:07 MCH 30 pg (28-32) 09/27/17 04:07 MCHC 34 % (30-34) 09/27/17 04:07 RDW 12.4 % (13.2-15.2) L 09/27/17 04:07 Plt Count 387 K/mm3 (140-440) 09/27/17 04:07 Lymph % (Auto) 45.9 % (13.4-35.0) H 09/27/17 04:07 [place] % (Auto) 6.7 % (0.0-7.3) 09/27/17 04:07 Eos % (Auto) 3.9 % (0.0-4.3) 09/27/17 04:07 Baso % (Auto) 0.9 % (0.0-1.8) 09/27/17 04:07 Lymph # 4.3 K/mm3 (1.2-5.4) 09/27/17 04:07 [place] # 0.6 K/mm3 (0.0-0.8) 09/27/17 04:07 Eos # 0.4 K/mm3 (0.0-0.4) 09/27/17 04:07 Baso # 0.1 K/mm3 (0.0-0.1) 09/27/17 04:07 Seg Neutrophils % 42.6 % (40.0-70.0) 09/27/17 04:07 Seg Neutrophils # 4.0 K/mm3 (1.8-7.7) 09/27/17 04:07 D-Dimer 511.72 ng/mlDDU (0-234) H 09/21/17 17:23 Sodium 138 mmol/L (137-145) 09/27/17 04:07 Potassium 3.7 mmol/L (3.6-5.0) 09/27/17 04:07 Chloride 100.3 mmol/L (98-107) 09/27/17 04:07 Carbon Dioxide 30 mmol/L (22-30) 09/27/17 04:07 Anion Gap 11 mmol/L 09/27/17 04:07 BUN 4 mg/dL (7-17) L 09/27/17 04:07 Creatinine 0.6 mg/dL (0.7-1.2) L 09/27/17 04:07 Estimated GFR > 60 ml/min 09/27/17 04:07 BUN/Creatinine Ratio 7 % 09/27/17 04:07 Glucose 100 mg/dL (65-100) 09/27/17 04:07 Calcium 8.7 mg/dL (8.4-10.2) 09/27/17 04:07 Magnesium 1.80 mg/dL (1.7-2.3) 09/25/17 04:24 Total Bilirubin 0.30 mg/dL (0.1-1.2) 09/27/17 04:07 AST 54 units/L (5-40) H 09/27/17 04:07 ALT 54 units/L (7-56) 09/27/17 04:07 Alkaline Phosphatase 142 units/L (35-129) H 09/27/17 04:07 Total Protein 6.9 g/dL (6.3-8.2) 09/27/17 04:07 Albumin 3.3 g/dL (3.9-5) L 09/27/17 04:07 Albumin/Globulin Ratio 0.9 % 09/27/17 04:07 Lipase 14 units/L (13-60) 09/21/17 12:40 HCG, Qual Negative (Negative) 09/21/17 18:11 Urine Color Yellow (Yellow) 09/24/17 Unknown Urine Turbidity Clear (Clear) 09/24/17 Unknown Urine pH 5.0 (5.0-7.0) 09/24/17 Unknown Ur Specific [place] 1.024 (1.003-1.030) 09/24/17 Unknown Urine Protein <15 mg/dl mg/dL (Negative) 09/24/17 Unknown Urine Glucose (UA) Negative mg/dL (Negative) 09/24/17 Unknown Urine Ketones 20 mg/dL (Negative) 09/24/17 Unknown Urine Blood Moderate (Negative) A 09/24/17 Unknown Urine Nitrite Negative (Negative) 09/24/17 Unknown Urine Bilirubin Negative (Negative) 09/24/17 Unknown Urine Urobilinogen < 2.0 mg/dL (<2.0) 09/24/17 Unknown Ur Leukocyte Esterase Small (Negative) 09/24/17 Unknown Urine WBC (Auto) 22.0 /HPF (0.0-6.0) H 09/24/17 Unknown Urine RBC (Auto) 26.0 /HPF (0.0-6.0) 09/24/17 Unknown U Epithel Cells (Auto) 2.0 /HPF (0-13.0) 09/21/17 12:34 Urine Bacteria (Auto) 1+ /HPF (Negative) 09/21/17 12:34 Hyaline Casts 1 /LPF 09/21/17 12:34 Urine Mucus 3+ /HPF 09/24/17 Unknown
[2017-09-27] MEDS: PEPCID IV SCH ×2 (09:00→22:05)
[2017-09-27] MEDS: MILK OF MAGNESIA PO PRN ×2 (14:47→18:30)
[2017-09-27] MEDS: LEVAQUIN 500MG/100ML 500 MG/100 ML BAG IV SCH (16:08)
[2017-09-28] MEDS: NORCO 5/325 PO PRN ×4 (04:00→20:03)
[2017-09-28] MEDS: HEPARIN SUB-Q SCH ×3 (06:03→21:35)
[2017-09-28] MEDS: PEPCID IV SCH ×2 (08:21→10:06)
--- NOTE | 2017-09-28 09:37 | Progress Note ---
Assessment and Plan POD # 5 Pt feeling well without compl. sitting in chair. brant full liq diet. + BM KAYDEN 10 cc Abd soft, incision clean and dry. stable solid low fat diet d/c Levaquin re-dress incision Selected Entries 09/28/17 09/28/17 07:04 07:05 Temperature 98.6 F Pulse Rate 59 L Respiratory 18 Rate Blood Pressure 145/82 Laboratory Tests 09/27/17 09/27/17 04:07 04:07 WBC 9.3 Hgb 11.7 Hct 34.8 Sodium 138 Potassium 3.7 Chloride 100.3 Carbon Dioxide 30 Anion Gap 11 BUN 4 L Creatinine 0.6 L Total Bilirubin 0.30 AST 54 H ALT 54 Alkaline Phosphatase 142 H Objective Vital Signs - 12hr 09/27/17 09/28/17 09/28/17 22:50 07:04 07:05 Temperature 98.3 F 98.6 F Pulse Rate 75 59 L Respiratory 20 18 Rate Blood Pressure 145/85 145/82 O2 Sat by Pulse 97 Oximetry - Labs 09/27/17 04:07 09/27/17 04:07
--- NOTE | 2017-09-28 13:55 | Progress Note ---
Assessment and Plan Assessment and plan: This patient is a 47-year-old woman with history of hypertension, migraines and GERD who presented with abdominal pain. Limited ultrasound abdomen read as cholelithiasis and likely changes of cholecystitis are seen, mild common bile duct dilatation is seen, further evaluation with MRCP may be useful to assess for any ductal stones. MRCP read as cholelithiasis and gallbladder consistent with acute cholecystitis with 6 mm obstructing calculus at the cystic duct. 2 suspect obstructing Visit distant common bowel duct 3 no evidence of pancreatitis No obstructing distal common bile duct stone identified 09/23/2017 operative report, Dr. Medina Postoperative diagnosis: Acute cholecystitis with pre-gangrenous changes and extensive surrounding information and edema Procedure: 1. Attempted laparoscopic cholecystectomy 2. Conversion to open cholecystectomy 3. Common bowel duct repair 4. T-tube insertion -Sepsis was present on admission as evidenced by heart rate 103 and white blood cell count 12.5 with evidence of acute cholecystitis: Continue IV antibiotics -Acute cholecystitis with obstruction status post open cholecystectomy: Gen. surgery is still following, -Cholelithiasis see above -Common bowel duct dissection status post repair -DVT prophylaxis: Add subcutaneous heparin 09/25/17: ngt removed. 09/26/17: ice chips started 09/27/17: still no bm or gas, practice incentive spirometry, she is waiting to get a sponge bath. 09/28/17: she had a BM this morning, she will start clear liquid diet today. Anticipate d/c on Thursday per Surgeon, Dr. Medina History Interval history: Patient seen and examined. Follow-up on current diagnosis/abdominal pain which is still present. Overnight uneventful. Patient denies any chest pain, shortness breath, nausea/vomiting or severe headaches. Imaging, nursing note, chart, labs and old chart reviewed. Discussed with patient. at bedside Hospitalist Physical - Physical exam Narrative exam: GEN: Ill-appearing NAD, AWAKE, ALERT, ORIENTATED 3 HEENT: NCAT, EOMI, PERRL, OP Clear NECK: supple, no adenopathy, no thyromegaly, no JVD CVS/HEART: Regular, NORMAL S1S2, NO JVD, pulses present bilaterally CHEST/LUNGS: CTA B, Symmetrical chest expansion, good air entry bilaterally GI/Abdomen: soft, surgical changes the dressing intact, positive bowel sounds, no guarding or rebound, KAYDNE drain intact, and T tube drain is present also /Bladder: no suprapubic tenderness, no CVA or paraspinal tenderness EXT/Skin: no c/c/e, no obvious rash MSK: FROM x 4 Neuro: CN 2-12 grossly intact, no new focal deficits Psych: calm - Constitutional Vitals: Temp Pulse Resp BP Pulse Ox 97.9 F 72 20 143/96 98 09/28/17 11:14 09/28/17 11:14 09/28/17 11:14 09/28/17 11:14 09/28/17 11:14 General appearance: Present: no acute distress, well-nourished Results - Labs CBC & Chem 7: 09/27/17 04:07 09/27/17 04:07 Labs: Laboratory Last Values WBC 9.3 K/mm3 (4.5-11.0) 09/27/17 04:07 RBC 3.89 M/mm3 (3.65-5.03) 09/27/17 04:07 Hgb 11.7 gm/dl (10.1-14.3) 09/27/17 04:07 Hct 34.8 % (30.3-42.9) 09/27/17 04:07 MCV 90 fl (79-97) 09/27/17 04:07 MCH 30 pg (28-32) 09/27/17 04:07 MCHC 34 % (30-34) 09/27/17 04:07 RDW 12.4 % (13.2-15.2) L 09/27/17 04:07 Plt Count 387 K/mm3 (140-440) 09/27/17 04:07 Lymph % (Auto) 45.9 % (13.4-35.0) H 09/27/17 04:07 [place] % (Auto) 6.7 % (0.0-7.3) 09/27/17 04:07 Eos % (Auto) 3.9 % (0.0-4.3) 09/27/17 04:07 Baso % (Auto) 0.9 % (0.0-1.8) 09/27/17 04:07 Lymph # 4.3 K/mm3 (1.2-5.4) 09/27/17 04:07 [place] # 0.6 K/mm3 (0.0-0.8) 09/27/17 04:07 Eos # 0.4 K/mm3 (0.0-0.4) 09/27/17 04:07 Baso # 0.1 K/mm3 (0.0-0.1) 09/27/17 04:07 Seg Neutrophils % 42.6 % (40.0-70.0) 09/27/17 04:07 Seg Neutrophils # 4.0 K/mm3 (1.8-7.7) 09/27/17 04:07 D-Dimer 511.72 ng/mlDDU (0-234) H 09/21/17 17:23 Sodium 138 mmol/L (137-145) 09/27/17 04:07 Potassium 3.7 mmol/L (3.6-5.0) 09/27/17 04:07 Chloride 100.3 mmol/L (98-107) 09/27/17 04:07 Carbon Dioxide 30 mmol/L (22-30) 09/27/17 04:07 Anion Gap 11 mmol/L 09/27/17 04:07 BUN 4 mg/dL (7-17) L 09/27/17 04:07 Creatinine 0.6 mg/dL (0.7-1.2) L 09/27/17 04:07 Estimated GFR > 60 ml/min 09/27/17 04:07 BUN/Creatinine Ratio 7 % 09/27/17 04:07 Glucose 100 mg/dL (65-100) 09/27/17 04:07 Calcium 8.7 mg/dL (8.4-10.2) 09/27/17 04:07 Magnesium 1.80 mg/dL (1.7-2.3) 09/25/17 04:24 Total Bilirubin 0.30 mg/dL (0.1-1.2) 09/27/17 04:07 AST 54 units/L (5-40) H 09/27/17 04:07 ALT 54 units/L (7-56) 09/27/17 04:07 Alkaline Phosphatase 142 units/L (35-129) H 09/27/17 04:07 Total Protein 6.9 g/dL (6.3-8.2) 09/27/17 04:07 Albumin 3.3 g/dL (3.9-5) L 09/27/17 04:07 Albumin/Globulin Ratio 0.9 % 09/27/17 04:07 Lipase 14 units/L (13-60) 09/21/17 12:40 HCG, Qual Negative (Negative) 09/21/17 18:11 Urine Color Yellow (Yellow) 09/24/17 Unknown Urine Turbidity Clear (Clear) 09/24/17 Unknown Urine pH 5.0 (5.0-7.0) 09/24/17 Unknown Ur Specific [place] 1.024 (1.003-1.030) 09/24/17 Unknown Urine Protein <15 mg/dl mg/dL (Negative) 09/24/17 Unknown Urine Glucose (UA) Negative mg/dL (Negative) 09/24/17 Unknown Urine Ketones 20 mg/dL (Negative) 09/24/17 Unknown Urine Blood Moderate (Negative) A 09/24/17 Unknown Urine Nitrite Negative (Negative) 09/24/17 Unknown Urine Bilirubin Negative (Negative) 09/24/17 Unknown Urine Urobilinogen < 2.0 mg/dL (<2.0) 09/24/17 Unknown Ur Leukocyte Esterase Small (Negative) 09/24/17 Unknown Urine WBC (Auto) 22.0 /HPF (0.0-6.0) H 09/24/17 Unknown Urine RBC (Auto) 26.0 /HPF (0.0-6.0) 09/24/17 Unknown U Epithel Cells (Auto) 2.0 /HPF (0-13.0) 09/21/17 12:34 Urine Bacteria (Auto) 1+ /HPF (Negative) 09/21/17 12:34 Hyaline Casts 1 /LPF 09/21/17 12:34 Urine Mucus 3+ /HPF 09/24/17 Unknown
[2017-09-28] MEDS: PEPCID PO SCH (21:36)
[2017-09-29] MEDS: HEPARIN SUB-Q SCH ×2 (05:50→21:50)
[2017-09-29] MEDS: PEPCID PO SCH ×2 (09:30→21:43)
--- NOTE | 2017-09-29 13:42 | Progress Note ---
Assessment and Plan Pt c/o slowly progressing R flank pain. otherwise doing well. brant diet KAYDEN 95 cc Abd soft. mild R flank tenderness r/o fluid collection/bile leak will get CT abd & pelvis with IV & PO contrast now Selected Entries 09/29/17 07:42 Temperature 99.1 F Pulse Rate 71 Respiratory 18 Rate Blood Pressure 134/84 [Left] Objective Vital Signs - 12hr 09/29/17 09/29/17 09/29/17 04:34 05:24 07:42 Temperature 98.4 F 99.1 F Pulse Rate 87 87 71 Respiratory 18 18 18 Rate Blood Pressure 128/92 Blood Pressure 128/92 134/84 [Left] O2 Sat by Pulse 97 97 96 Oximetry - Labs 09/27/17 04:07 09/27/17 04:07
[2017-09-29] MEDS ORDERED: NACL ONE (14:23)
--- NOTE | 2017-09-29 16:54 | Progress Note ---
Assessment and Plan Assessment and plan: This patient is a 47-year-old woman with history of hypertension, migraines and GERD who presented with abdominal pain. Limited ultrasound abdomen read as cholelithiasis and likely changes of cholecystitis are seen, mild common bile duct dilatation is seen, further evaluation with MRCP may be useful to assess for any ductal stones. MRCP read as cholelithiasis and gallbladder consistent with acute cholecystitis with 6 mm obstructing calculus at the cystic duct. 2 suspect obstructing Visit distant common bowel duct 3 no evidence of pancreatitis No obstructing distal common bile duct stone identified 09/23/2017 operative report, Dr. Medina Postoperative diagnosis: Acute cholecystitis with pre-gangrenous changes and extensive surrounding information and edema Procedure: 1. Attempted laparoscopic cholecystectomy 2. Conversion to open cholecystectomy 3. Common bowel duct repair 4. T-tube insertion -Sepsis was present on admission as evidenced by heart rate 103 and white blood cell count 12.5 with evidence of acute cholecystitis: Treated with IV antibiotics NOW DISCONTINUED -Acute cystitis- Cultures unrevealing -Acute cholecystitis with obstruction status post open cholecystectomy: Gen. surgery is still following, CT abd and Pelvis to evaluate for bile leak -Cholelithiasis see above -Abdominal/Peritoneal irritation. R/O BILE LEAK, Encouraged splinting to ensure deep breaths and prevent Pneumonia/ atelectasis -Common bowel duct dissection status post repair -DVT prophylaxis: Add subcutaneous heparin -Discussed plan with patient and nursing staff History Interval history: Patient seen and examined today in no acute distress, complained of some mild pain at the right upper quad axillary site. Reports Postive BM and flatus yesterday Hospitalist Physical - Physical exam Narrative exam: VITAL SIGNS: Reviewed. GENERAL: The patient appeared well nourished and normally developed. Vital signs as documented. HEAD: No signs of head trauma. EYES: Pupils are equal. Extraocular motions intact. EARS: Hearing grossly intact. MOUTH: Oropharynx is normal. NECK: No adenopathy, no JVD. CHEST: Chest with clear breath sounds bilaterally. No wheezes, rales, or rhonchi. CARDIAC: Regular rate and rhythm. S1 and S2, without murmurs, gallops, or rubs. VASCULAR: No Edema. Peripheral pulses normal and equal in all extremities. ABDOMEN: Soft, mild right-sided tenderness, KAYDEN drain in place.. No sign of distention. No rebound or guarding, and no masses palpated. Bowel Sounds normal. MUSCULOSKELETAL: Good range of motion of all major joints. Extremities without clubbing, cyanosis or edema. NEUROLOGIC EXAM: Alert and oriented x 3. No focal sensory or strength deficits. Speech normal. Follows commands. PSYCHIATRIC: Mood normal. SKIN: No rash or lesions. - Constitutional Vitals: Temp Pulse Resp BP Pulse Ox 98.8 F 73 18 131/80 98 09/29/17 16:00 09/29/17 16:00 09/29/17 16:00 09/29/17 16:00 09/29/17 16:00 General appearance: Present: no acute distress, well-nourished Results - Labs CBC & Chem 7: 09/27/17 04:07 09/27/17 04:07 Labs: Laboratory Last Values WBC 9.3 K/mm3 (4.5-11.0) 09/27/17 04:07 RBC 3.89 M/mm3 (3.65-5.03) 09/27/17 04:07 Hgb 11.7 gm/dl (10.1-14.3) 09/27/17 04:07 Hct 34.8 % (30.3-42.9) 09/27/17 04:07 MCV 90 fl (79-97) 09/27/17 04:07 MCH 30 pg (28-32) 09/27/17 04:07 MCHC 34 % (30-34) 09/27/17 04:07 RDW 12.4 % (13.2-15.2) L 09/27/17 04:07 Plt Count 387 K/mm3 (140-440) 09/27/17 04:07 Lymph % (Auto) 45.9 % (13.4-35.0) H 09/27/17 04:07 Daniels % (Auto) 6.7 % (0.0-7.3) 09/27/17 04:07 Eos % (Auto) 3.9 % (0.0-4.3) 09/27/17 04:07 Baso % (Auto) 0.9 % (0.0-1.8) 09/27/17 04:07 Lymph # 4.3 K/mm3 (1.2-5.4) 09/27/17 04:07 Daniels # 0.6 K/mm3 (0.0-0.8) 09/27/17 04:07 Eos # 0.4 K/mm3 (0.0-0.4) 09/27/17 04:07 Baso # 0.1 K/mm3 (0.0-0.1) 09/27/17 04:07 Seg Neutrophils % 42.6 % (40.0-70.0) 09/27/17 04:07 Seg Neutrophils # 4.0 K/mm3 (1.8-7.7) 09/27/17 04:07 D-Dimer 511.72 ng/mlDDU (0-234) H 09/21/17 17:23 Sodium 138 mmol/L (137-145) 09/27/17 04:07 Potassium 3.7 mmol/L (3.6-5.0) 09/27/17 04:07 Chloride 100.3 mmol/L (98-107) 09/27/17 04:07 Carbon Dioxide 30 mmol/L (22-30) 09/27/17 04:07 Anion Gap 11 mmol/L 09/27/17 04:07 BUN 4 mg/dL (7-17) L 09/27/17 04:07 Creatinine 0.6 mg/dL (0.7-1.2) L 09/27/17 04:07 Estimated GFR > 60 ml/min 09/27/17 04:07 BUN/Creatinine Ratio 7 % 09/27/17 04:07 Glucose 100 mg/dL (65-100) 09/27/17 04:07 Calcium 8.7 mg/dL (8.4-10.2) 09/27/17 04:07 Magnesium 1.80 mg/dL (1.7-2.3) 09/25/17 04:24 Total Bilirubin 0.30 mg/dL (0.1-1.2) 09/27/17 04:07 AST 54 units/L (5-40) H 09/27/17 04:07 ALT 54 units/L (7-56) 09/27/17 04:07 Alkaline Phosphatase 142 units/L (35-129) H 09/27/17 04:07 Total Protein 6.9 g/dL (6.3-8.2) 09/27/17 04:07 Albumin 3.3 g/dL (3.9-5) L 09/27/17 04:07 Albumin/Globulin Ratio 0.9 % 09/27/17 04:07 Lipase 14 units/L (13-60) 09/21/17 12:40 HCG, Qual Negative (Negative) 09/21/17 18:11 Urine Color Yellow (Yellow) 09/24/17 Unknown Urine Turbidity Clear (Clear) 09/24/17 Unknown Urine pH 5.0 (5.0-7.0) 09/24/17 Unknown Ur Specific [place] 1.024 (1.003-1.030) 09/24/17 Unknown Urine Protein <15 mg/dl mg/dL (Negative) 09/24/17 Unknown Urine Glucose (UA) Negative mg/dL (Negative) 09/24/17 Unknown Urine Ketones 20 mg/dL (Negative) 09/24/17 Unknown Urine Blood Moderate (Negative) A 09/24/17 Unknown Urine Nitrite Negative (Negative) 09/24/17 Unknown Urine Bilirubin Negative (Negative) 09/24/17 Unknown Urine Urobilinogen < 2.0 mg/dL (<2.0) 09/24/17 Unknown Ur Leukocyte Esterase Small (Negative) 09/24/17 Unknown Urine WBC (Auto) 22.0 /HPF (0.0-6.0) H 09/24/17 Unknown Urine RBC (Auto) 26.0 /HPF (0.0-6.0) 09/24/17 Unknown U Epithel Cells (Auto) 2.0 /HPF (0-13.0) 09/21/17 12:34 Urine Bacteria (Auto) 1+ /HPF (Negative) 09/21/17 12:34 Hyaline Casts 1 /LPF 09/21/17 12:34 Urine Mucus 3+ /HPF 09/24/17 Unknown - Imaging and Cardiology CT scan - abdomen: pending
--- NOTE | 2017-09-29 17:39 | Cat Scan Report ---
FINAL REPORT PROCEDURE: CT ABDOMEN PELVIS W CON TECHNIQUE: Computerized axial tomography of the abdomen and pelvis was performed after the IV injection of iodinated nonionic contrast. HISTORY: r/o fluid collection RUQ abd / bile leak COMPARISON: Prior abdominal ultrasound 09/2017 FINDINGS: Lower Lung justice: Small amount of patchy atelectasis seen in the lung bases. There is no dense consolidation. No effusions are visualized. Upper Abdomen: Gallbladder is surgically absent. There is a biliary drainage catheter in place extending into the common bile duct. The intrahepatic ducts are not distended. A 2nd drainage catheter is visualized projecting into the right upper quadrant inferior and lateral to the liver. There is a small amount of fluid collected in the gallbladder fossa. This may represent postsurgical hematoma. This extends over approximately 4.1 x 2.2 centimeter. Bile leak cannot be entirely excluded nor can an abscess. This is visualized on image 67 series 3 axial image. No focal liver lesions are identified. The adrenal glands, the pancreas and the spleen are unremarkable. Kidneys, Ureters and Urinary bladder: No abnormalities are identified. Retroperitoneum: Abdominal aorta appears normal. No aneurysm is visualized. Nonspecific subcentimeter lymph nodes are seen in the retroperitoneum. No pathologically enlarged lymph nodes are identified. Bowel: There is no evidence of bowel obstruction. There is no free intraperitoneal gas. The appendix is not visualized. Small umbilical hernia containing adipose tissue visualized. No herniated loops of bowel are seen. Suture line is seen obliquely oriented in the right upper quadrant. Reproductive organs: Uterus is deviated to the right of midline. Nabothian cysts appears to be present. Nonspecific cystic change seen in the left adnexa measuring 2.5 centimeters may represent a maturing follicle. Right adnexa showed no focal abnormality. Other: There is mild wide arching thoracolumbar scoliosis convex to the left. No acute bony abnormalities are visualized. IMPRESSION: Drainage catheter and biliary drainage catheter visualize right upper quadrant. Intrahepatic ducts are not distended. Small to moderate-sized fluid collections seen in the gallbladder fossa as described. This is nonspecific and could represent a hematoma, seroma, abscess or bile collection. If there is concern for ongoing biliary leakage consider nuclear medicine HIDA scan for further evaluation. Gallbladder is surgically absent. Cystic change left adnexa may represent a maturing follicle. If clinically indicated pelvic ultrasound could be obtained for further evaluation.
[2017-09-29] MEDS: NORCO 5/325 PO PRN ×2 (17:52→23:45)
[2017-09-30 05:03] LABS: Anion Gap 20 mmol/L; BUN/Creatinine Ratio 17; Blood Urea Nitrogen 10 mg/dL (7-17); Calcium 8.6 mg/dL (8.4-10.2); Carbon Dioxide 24 mmol/L (22-30); Chloride 97.9 mmol/L (98-107); Glucose 97 mg/dL (65-100); Potassium 3.6 mmol/L (3.6-5.0); Sodium 138 mmol/L (137-145)
[2017-09-30] MEDS: HEPARIN SUB-Q SCH ×4 (06:59→21:57)
[2017-09-30] MEDS: MILK OF MAGNESIA PO PRN (08:11)
[2017-09-30] MEDS: PEPCID PO SCH ×3 (08:12→22:00)
--- NOTE | 2017-09-30 09:06 | Progress Note ---
Assessment and Plan Pt still c/o of some flank "muscle pain" brant diet Abd soft, non tender CT reviewed with radiologist - no significant findings of intra abd fluid collections or abscess. T-tube in place. stable clamp T-tube today monitor KAYDEN drainage continue present care Selected Entries 09/30/17 07:47 Temperature 99 F Pulse Rate 71 Respiratory 18 Rate Blood Pressure 112/65 [Left] Laboratory Tests 09/30/17 04:12 Sodium 138 Potassium 3.6 Chloride 97.9 L Carbon Dioxide 24 BUN 10 Creatinine 0.6 L Objective Vital Signs - 12hr 09/29/17 09/29/17 09/30/17 22:00 23:45 00:52 Temperature 98.7 F Pulse Rate 74 Respiratory 18 20 17 Rate Blood Pressure 132/83 Blood Pressure [Left] O2 Sat by Pulse 97 Oximetry 09/30/17 09/30/17 09/30/17 00:53 05:18 07:47 Temperature 98.9 F 99 F Pulse Rate 72 71 71 Respiratory 17 18 Rate Blood Pressure 119/72 Blood Pressure 112/65 [Left] O2 Sat by Pulse 98 97 97 Oximetry - Labs 09/27/17 04:07 09/30/17 04:12 Diabetes panel 09/30/17 Range/Units 04:12 Sodium 138 (137-145) mmol/L Potassium 3.6 (3.6-5.0) mmol/L Chloride 97.9 L (98-107) mmol/L Carbon Dioxide 24 (22-30) mmol/L BUN 10 (7-17) mg/dL Creatinine 0.6 L (0.7-1.2) mg/dL Glucose 97 (65-100) mg/dL Calcium 8.6 (8.4-10.2) mg/dL Calcium panel 09/30/17 Range/Units 04:12 Calcium 8.6 (8.4-10.2) mg/dL Pituitary panel 09/30/17 Range/Units 04:12 Sodium 138 (137-145) mmol/L Potassium 3.6 (3.6-5.0) mmol/L Chloride 97.9 L (98-107) mmol/L Carbon Dioxide 24 (22-30) mmol/L BUN 10 (7-17) mg/dL Creatinine 0.6 L (0.7-1.2) mg/dL Glucose 97 (65-100) mg/dL Calcium 8.6 (8.4-10.2) mg/dL Adrenal panel 09/30/17 Range/Units 04:12 Sodium 138 (137-145) mmol/L Potassium 3.6 (3.6-5.0) mmol/L Chloride 97.9 L (98-107) mmol/L Carbon Dioxide 24 (22-30) mmol/L BUN 10 (7-17) mg/dL Creatinine 0.6 L (0.7-1.2) mg/dL Glucose 97 (65-100) mg/dL Calcium 8.6 (8.4-10.2) mg/dL
--- NOTE | 2017-09-30 10:20 | Progress Note ---
Assessment and Plan Assessment and plan: This patient is a 47-year-old woman with history of hypertension, migraines and GERD who presented with abdominal pain. Limited ultrasound abdomen read as cholelithiasis and likely changes of cholecystitis are seen, mild common bile duct dilatation is seen, further evaluation with MRCP may be useful to assess for any ductal stones. MRCP read as cholelithiasis and gallbladder consistent with acute cholecystitis with 6 mm obstructing calculus at the cystic duct. 2 suspect obstructing Visit distant common bowel duct 3 no evidence of pancreatitis. No obstructing distal common bile duct stone identified 09/23/2017 operative report, Dr. Medina Postoperative diagnosis: Acute cholecystitis with pre-gangrenous changes and extensive surrounding information and edema Procedure: 1. Attempted laparoscopic cholecystectomy 2. Conversion to open cholecystectomy 3. Common bowel duct repair 4. T-tube insertion -Sepsis was present on admission as evidenced by heart rate 103 and white blood cell count 12.5 now improved, with evidence of acute cholecystitis: Treated with IV antibiotics now discontinued -Acute cystitis- Cultures unrevealing -Acute cholecystitis with obstruction status post open cholecystectomy: Gen. surgery is still following, CT abd and Pelvis to evaluate for bile leak -Cholelithiasis see above -Abdominal/Peritoneal irritation. R/O BILE LEAK, T Tube to be clamped and monitor. Encouraged splinting to ensure deep breaths and prevent Pneumonia/ Atelectasis -Common bowel duct dissection status post repair -DVT prophylaxis: Add subcutaneous heparin -std SCREENING IV stick to nurse -Discussed plan with patient and nursing staff History Interval history: Patient seen and examined today in no acute distress, complained of some mild pain at the right upper quad axillary site. Reports Positive BM and flatus yesterday. Nursing staff today accidently stock herself with IV. patient agreeable to std screening. Hospitalist Physical - Physical exam Narrative exam: VITAL SIGNS: Reviewed. GENERAL: The patient appeared well nourished and normally developed. Vital signs as documented. HEAD: No signs of head trauma. EYES: Pupils are equal. Extraocular motions intact. EARS: Hearing grossly intact. MOUTH: Oropharynx is normal. NECK: No adenopathy, no JVD. CHEST: Chest with clear breath sounds bilaterally. No wheezes, rales, or rhonchi. CARDIAC: Regular rate and rhythm. S1 and S2, without murmurs, gallops, or rubs. VASCULAR: No Edema. Peripheral pulses normal and equal in all extremities. ABDOMEN: Soft, mild right-sided tenderness, KAYDEN drain in place.. No sign of distention. No rebound or guarding, and no masses palpated. Bowel Sounds normal. MUSCULOSKELETAL: Good range of motion of all major joints. Extremities without clubbing, cyanosis or edema. NEUROLOGIC EXAM: Alert and oriented x 3. No focal sensory or strength deficits. Speech normal. Follows commands. PSYCHIATRIC: Mood normal. SKIN: No rash or lesions. - Constitutional Vitals: Temp Pulse Resp BP Pulse Ox 99 F 71 18 112/65 97 09/30/17 07:47 09/30/17 07:47 09/30/17 07:47 09/30/17 07:47 09/30/17 07:47 General appearance: Present: no acute distress, well-nourished Results - Labs CBC & Chem 7: 09/27/17 04:07 09/30/17 04:12 Labs: Laboratory Last Values WBC 9.3 K/mm3 (4.5-11.0) 09/27/17 04:07 RBC 3.89 M/mm3 (3.65-5.03) 09/27/17 04:07 Hgb 11.7 gm/dl (10.1-14.3) 09/27/17 04:07 Hct 34.8 % (30.3-42.9) 09/27/17 04:07 MCV 90 fl (79-97) 09/27/17 04:07 MCH 30 pg (28-32) 09/27/17 04:07 MCHC 34 % (30-34) 09/27/17 04:07 RDW 12.4 % (13.2-15.2) L 09/27/17 04:07 Plt Count 387 K/mm3 (140-440) 09/27/17 04:07 Lymph % (Auto) 45.9 % (13.4-35.0) H 09/27/17 04:07 [place] % (Auto) 6.7 % (0.0-7.3) 09/27/17 04:07 Eos % (Auto) 3.9 % (0.0-4.3) 09/27/17 04:07 Baso % (Auto) 0.9 % (0.0-1.8) 09/27/17 04:07 Lymph # 4.3 K/mm3 (1.2-5.4) 09/27/17 04:07 [place] # 0.6 K/mm3 (0.0-0.8) 09/27/17 04:07 Eos # 0.4 K/mm3 (0.0-0.4) 09/27/17 04:07 Baso # 0.1 K/mm3 (0.0-0.1) 09/27/17 04:07 Seg Neutrophils % 42.6 % (40.0-70.0) 09/27/17 04:07 Seg Neutrophils # 4.0 K/mm3 (1.8-7.7) 09/27/17 04:07 D-Dimer 511.72 ng/mlDDU (0-234) H 09/21/17 17:23 Sodium 138 mmol/L (137-145) 09/30/17 04:12 Potassium 3.6 mmol/L (3.6-5.0) 09/30/17 04:12 Chloride 97.9 mmol/L (98-107) L 09/30/17 04:12 Carbon Dioxide 24 mmol/L (22-30) 09/30/17 04:12 Anion Gap 20 mmol/L 09/30/17 04:12 BUN 10 mg/dL (7-17) 09/30/17 04:12 Creatinine 0.6 mg/dL (0.7-1.2) L 09/30/17 04:12 Estimated GFR > 60 ml/min 09/30/17 04:12 BUN/Creatinine Ratio 17 % 09/30/17 04:12 Glucose 97 mg/dL (65-100) 09/30/17 04:12 Calcium 8.6 mg/dL (8.4-10.2) 09/30/17 04:12 Magnesium 1.80 mg/dL (1.7-2.3) 09/25/17 04:24 Total Bilirubin 0.30 mg/dL (0.1-1.2) 09/27/17 04:07 AST 54 units/L (5-40) H 09/27/17 04:07 ALT 54 units/L (7-56) 09/27/17 04:07 Alkaline Phosphatase 142 units/L (35-129) H 09/27/17 04:07 Total Protein 6.9 g/dL (6.3-8.2) 09/27/17 04:07 Albumin 3.3 g/dL (3.9-5) L 09/27/17 04:07 Albumin/Globulin Ratio 0.9 % 09/27/17 04:07 Lipase 14 units/L (13-60) 09/21/17 12:40 HCG, Qual Negative (Negative) 09/21/17 18:11 Urine Color Yellow (Yellow) 09/24/17 Unknown Urine Turbidity Clear (Clear) 09/24/17 Unknown Urine pH 5.0 (5.0-7.0) 09/24/17 Unknown Ur Specific [place] 1.024 (1.003-1.030) 09/24/17 Unknown Urine Protein <15 mg/dl mg/dL (Negative) 09/24/17 Unknown Urine Glucose (UA) Negative mg/dL (Negative) 09/24/17 Unknown Urine Ketones 20 mg/dL (Negative) 09/24/17 Unknown Urine Blood Moderate (Negative) A 09/24/17 Unknown Urine Nitrite Negative (Negative) 09/24/17 Unknown Urine Bilirubin Negative (Negative) 09/24/17 Unknown Urine Urobilinogen < 2.0 mg/dL (<2.0) 09/24/17 Unknown Ur Leukocyte Esterase Small (Negative) 09/24/17 Unknown Urine WBC (Auto) 22.0 /HPF (0.0-6.0) H 09/24/17 Unknown Urine RBC (Auto) 26.0 /HPF (0.0-6.0) 09/24/17 Unknown U Epithel Cells (Auto) 2.0 /HPF (0-13.0) 09/21/17 12:34 Urine Bacteria (Auto) 1+ /HPF (Negative) 09/21/17 12:34 Hyaline Casts 1 /LPF 09/21/17 12:34 Urine Mucus 3+ /HPF 09/24/17 Unknown
[2017-09-30] MEDS: REGLAN IV PRN (13:34)
[2017-09-30 16:24] LABS: HIV-1 Antigen p24 Non React (Non React); HIVR-1/2 Ab Non React (Non React)
[2017-09-30] MEDS: ZOFRAN IV PRN (17:10)
[2017-09-30] MEDS: NORCO 5/325 PO PRN (21:59)
[2017-10-01] MEDS: HEPARIN SUB-Q SCH ×2 (06:21→15:38)
[2017-10-01] MEDS: PEPCID PO SCH (09:17)
[2017-10-01] MEDS: REGLAN IV PRN (10:26)
--- NOTE | 2017-10-01 10:38 | Discharge Summary ---
Providers - Providers Date of Admission: 09/21/17 21:03 Attending physician: DILLON SHORT MD 09/21/17 21:06 Consult to Physician [CONS] Routine Consulting Provider: JAMES MEDINA Reason For Exam: cholecystitis Place consult to:: Office Notified:: yes Phone number called:: [phone] Was contact made?: Yes Primary care physician: MAR DODD Hospitalization Reason for admission: RUQ PAIN Condition: Stable Hospital course: This patient is a 47-year-old woman with history of hypertension, migraines and GERD who presented with abdominal pain. Limited ultrasound abdomen read as cholelithiasis and likely changes of cholecystitis are seen, mild common bile duct dilatation is seen, further evaluation with MRCP may be useful to assess for any ductal stones. MRCP read as cholelithiasis and gallbladder consistent with acute cholecystitis with 6 mm obstructing calculus at the cystic duct. 2 suspect obstructing Visit distant common bowel duct 3 no evidence of pancreatitis. No obstructing distal common bile duct stone identified. Patient was seen by surgery and proceeded for laparoscopic cholecystectomy which subsequently changed to Open cholecystectomy due to the gangrenous changes and surrounding edema and information. Patient had a T-tube placed and also J tube, a leak check was done with imaging studies showing possible post surgical changes, Persistent RUQ pain could be secondary to the T-tube and J tube plus or minus atalectasis. it only occurs with cough, and is improved today. Patient is tolerating diet. Possible discharge today. 09/23/2017 operative report, Dr. Medina Postoperative diagnosis: Acute cholecystitis with pre-gangrenous changes and extensive surrounding information and edema Procedure: 1. Attempted laparoscopic cholecystectomy 2. Conversion to open cholecystectomy 3. Common bowel duct repair 4. T-tube insertion Discharge Diagnosis -Sepsis -Acute cystitis -Acute cholecystitis -Cholelithiasis -Abdominal/Peritoneal irritation. -Common bowel duct dissection status post repair Disposition: - TO HOME OR SELFCARE Time spent for discharge: 35 MINS Core Measure Documentation - Palliative Care Palliative Care/ Comfort Measures: Not Applicable - Core Measures Any of the following diagnoses?: none - VTE Discharge Requirements Deep Vein Thrombosis/Pulmonary Embolism Present on Admission: No Exam - Physical Exam Narrative exam: VITAL SIGNS: Reviewed. GENERAL: The patient appeared well nourished and normally developed. Vital signs as documented. HEAD: No signs of head trauma. EYES: Pupils are equal. Extraocular motions intact. EARS: Hearing grossly intact. MOUTH: Oropharynx is normal. NECK: No adenopathy, no JVD. CHEST: Chest with clear breath sounds bilaterally. No wheezes, rales, or rhonchi. CARDIAC: Regular rate and rhythm. S1 and S2, without murmurs, gallops, or rubs. VASCULAR: No Edema. Peripheral pulses normal and equal in all extremities. ABDOMEN: Soft, mild right-sided tenderness, KAYDEN drain in place. No sign of distention. No rebound or guarding, and no masses palpated. Bowel Sounds normal. MUSCULOSKELETAL: Good range of motion of all major joints. Extremities without clubbing, cyanosis or edema. NEUROLOGIC EXAM: Alert and oriented x 3. No focal sensory or strength deficits. Speech normal. Follows commands. PSYCHIATRIC: Mood normal. SKIN: No rash or lesions. - Constitutional Vitals: Temp Pulse Resp BP Pulse Ox 99.0 F 71 18 115/70 97 10/01/17 07:20 10/01/17 07:20 10/01/17 07:20 10/01/17 07:20 10/01/17 07:20 Plan Activity: advance as tolerated, fall precautions Diet: low fat Special Instructions: record daily BP diary Follow up with: PRIMARY CARE, [Referring] - 3-5 Days JAMES MEDINA MD [Staff Physician] - 7 Days Prescriptions: Famotidine [Pepcid] 20 mg PO BID #30 tablet HYDROcodone/APAP 5-325 [[place] 5-325 mg TAB] 1 each PO Q6HR PRN #14 tablet PRN Reason: Pain, Moderate (4-6) Ondansetron [Zofran ODT TAB] 8 mg PO TID PRN #30 tab.rapdis PRN Reason: Nausea And Vomiting
[2017-10-01 13:05] VITALS: BP 118/79
--- NOTE | 2017-10-01 14:43 | Progress Note ---
Assessment and Plan Pt feeling well. flank pain much improved. KAYDEN 10 cc brant diet Abd soft, non tender. incision clean & dry. d/c KAYDEN d/c chris, steristrip incision. march d/c today from surgical perspective rto this Thursday Objective Vital Signs - 12hr 10/01/17 10/01/17 07:20 12:08 Temperature 99.0 F 98.7 F Pulse Rate 71 77 Respiratory 18 18 Rate Blood Pressure 115/70 118/79 O2 Sat by Pulse 97 100 Oximetry - Labs 09/27/17 04:07 09/30/17 04:12
== END 2017-10-01 16:23 | disposition home or self-care (01) | DRG 853 ==
LOC: ED 12:00 → 3B-SURG 21:03
PROVIDERS: ADMIT Internal Medicine; ATTEND Internal Medicine
PROC: BF121ZZ Fluoroscopy of Gallbladder using Low Osmolar Contrast (ICD-10-PCS; principal; 2017-09-23)
PROC: 0FT40ZZ Resection of Gallbladder, Open Approach (ICD-10-PCS; 2017-09-23)
PROC: 3C1ZX8Z Irrigation of Indwelling Device using Irrigating Substance, External Approach (ICD-10-PCS; 2017-09-23)
PROC: 0FJ44ZZ Inspection of Gallbladder, Percutaneous Endoscopic Approach (ICD-10-PCS; 2017-09-23)
DX: A41.9 Sepsis, unspecified organism (principal); K65.9 Peritonitis, unspecified; N30.00 Acute cystitis without hematuria; K80.13 Calculus of gallbladder with acute and chronic cholecystitis with obstruction; E78.5 Hyperlipidemia, unspecified; K21.9 Gastro-esophageal reflux disease without esophagitis; F32.9 Major depressive disorder, single episode, unspecified; G43.909 Migraine, unspecified, not intractable, without status migrainosus; M54.9 Dorsalgia, unspecified; Z79.899 Other long term (current) drug therapy; Z79.82 Long term (current) use of aspirin
CPT/HCPCS: 36415; 74177; 74181; 74300; 76705; 80048; 80053; 80074; 81001; 83690; 83735; 84703; 85025; 85027; 85379; 87086; 87806; 88304; 93005; 93010; 96361; 96365; 96375; 99285; J1100; J1170; J1644; J1650; J1885; J1956; J2250; J2270; J2370; J2405; J2704; J2710; J2765; J3010; J3480; J7030; J7040; J7042; J7050; J7120; Q9967